=== PATIENT | male | born 1985 ===

== ENCOUNTER → 2020-08-06 11:38 | Outpatient (BNVA) | payer MEDICARE, MEDICAID, SELFPAY | PROVIDERS: PCP Internal Medicine; Referring Provider Internal Medicine; Visit Provider Internal Medicine Endocrinology, Diabetes & Metabolism | DX: Z13.89 Encounter for screening for other disorder (principal) | CPT/HCPCS: 99212 ==

== ENCOUNTER 2020-08-11 09:34 | Outpatient (REF) | payer MEDICARE, MEDICAID, SELFPAY ==
[2020-08-11 10:48] LABS: Estimated Average Glucose 174 mg/dL; Hemoglobin A1c % 7.7 %
[2020-08-11 10:56] LABS: Alanine Aminotransferase 42 U/L (0-40); Alkaline Phosphatase 126 U/L (39-117); Anion Gap 13 (12-20); Aspartate Amino Transferase 19 U/L (5-37); Bilirubin Total 0.7 mg/dL (0.0-1.0); Blood Urea Nitrogen 18 mg/dL (9-16); Carbon Dioxide 26 mmol/L (22-29); Chloride 104 mmol/L (96-108); Estimated Glomerular Filt Rate > 60; Glucose Fasting 163 mg/dL (60-99); Potassium 4.9 mmol/l (3.3-5.1); Sodium 138 mmol/L (135-145); Total Protein 7.5 g/dL (6.5-8.0)
[2020-08-11 11:18] LABS: Vitamin D 25-OH Total 32.8 ng/mL (>30)
== END 2020-08-11 09:35 | disposition home or self-care (01) ==
LOC: HO.10HDL 09:34
PROVIDERS: Visit Provider Internal Medicine Endocrinology, Diabetes & Metabolism
DX: E11.65 Type 2 diabetes mellitus with hyperglycemia (principal); E55.9 Vitamin D deficiency, unspecified
CPT/HCPCS: 80053; 82306; 83036

== ENCOUNTER → 2020-12-10 13:17 | Outpatient (BNVA) | payer MEDICARE, MEDICAID, SELFPAY | PROVIDERS: PCP Internal Medicine; Visit Provider Internal Medicine Endocrinology, Diabetes & Metabolism | DX: E11.65 Type 2 diabetes mellitus with hyperglycemia (principal); E66.01 Morbid (severe) obesity due to excess calories; E55.9 Vitamin D deficiency, unspecified; E78.5 Hyperlipidemia, unspecified; I10 Essential (primary) hypertension | CPT/HCPCS: 82947; 99212 ==

== ENCOUNTER 2021-10-05 12:46 | Emergency (ER) | payer MEDICARE, MEDICAID, SELFPAY ==
[2021-10-05 14:14] VITALS: BP 128/79; PULSE 84; RESP 16; TEMP 36.9; O2SAT 97; BMI 51.7
--- NOTE | 2021-10-05 14:21 | ED.GENADULT ---
HPI - General Adult General Chief complaint: General Medical Stated complaint: medication refill Time Seen by Provider: 10/05/21 14:19 Source: patient Mode of arrival: ambulatory Limitations: no limitations History of Present Illness HPI narrative: 35-year-old male with history of obesity, depression, anxiety, HTN, HLD, DM on insulin, LENCHO who presents to the ER for medication refill. He reports that his primary care doctor movement he does not have an appointment with his new doctor until January. He has been without his lisinopril and atorvastatin for 2 weeks now. He does have all of his insulin and diabetic medications. His sugars have been under adequate control. He does not have a home blood pressure cuff but he denies any chest pain, shortness of breath, headache, vision changes. MD complaint: Medication refill Relieving factors: none Exacerbating factors: none Associated symptoms: denies other symptoms Treatments prior to arrival: none Related Data Previous Rx's Medication Instructions Recorded atorvastatin 80 mg tablet 80 mg PO DAILY #90 tab 12/10/20 blood sugar diagnostic (FreeStyle 1 strip MISCELLANEOUS TID #300 12/10/20 Lite Strips) strip empagliflozin 25 mg tablet 25 mg PO DAILY 30 Days #30 tab 12/10/20 insulin aspart U-100 100 unit/mL 15 unit (0.15 mL) SUBCUT TID 30 12/10/20 (3 mL) subcutaneous pen Days #15 ml insulin degludec 200 unit/mL (3 60 unit (0.3 mL) SUBCUT BEDTIME 30 12/10/20 mL) subcutaneous pen Days #9 ml lisinopril 10 mg tablet 10 mg PO DAILY 90 Days #90 tab 12/10/20 pen needle, diabetic 32 gauge x #150 ea 12/10/20 FreeStyle Lancets 28 gauge #300 ea NS 12/11/20 (lancets) clotrimazole 1 % topical cream 1 appl TOPICAL BID 14 Days #45 g 12/29/20 fluconazole 150 mg tablet 150 mg PO DAILY 3 Days #3 tab 12/29/20 dulaglutide 3 mg/0.5 mL 3 mg (0.5 mL) SUBCUT QWEEK 30 Days 01/19/21 subcutaneous pen injector #2.5 ml (Trulicity) cholecalciferol (vitamin D3) 50 50 mcg PO DAILY 90 Days #90 cap 09/14/21 mcg (2,000 unit) capsule atorvastatin 80 mg tablet 80 mg PO BEDTIME #30 tab 10/05/21 lisinopril 10 mg tablet 10 mg PO DAILY #30 tab 10/05/21 Allergies Allergy/AdvReac Type Severity Reaction Status Date / Time No Known Allergies Allergy Unverified 06/11/20 18:19 pt states no food/medication Allergy Unknown Uncoded 04/30/20 00:00 a Review of Systems Review of Systems: Constitutional: No Fever, No Chills Eyes: No vision changes Cardiovascular: No Chest Pain, No SOB Gastrointestinal: No Nausea, No Vomiting, No Diarrhea, No abdominal Pain Musculoskeletal: No Myalgias Neuro: No Weakness, No Dizziness, No Headache Psych: + Anxiety/Panic Endocrine: No Polyuria, No Polydipsia PMFSH Past Medical History Medical History (Updated 10/05/21 @ 14:29 by VIKA Green) Anxiety Candidal balanitis Depression Diabetes type 2, uncontrolled Dyslipidemia Hypertension Morbid obesity Sleep apnea Vitamin D deficiency Surgical History (Updated 07/30/20 @ 15:18 by Myrna Menezes [facility]) No pertinent past surgical history Family History Family History (Updated 07/30/20 @ 15:19 by FRANC Oates) Father Hypertension Mother Type 2 diabetes mellitus Obesity Social History Social History (Updated 08/06/20 @ 11:40 by Kim Alonzo [facility]) Advance Directives: No Advance Directives Information Provided: No Physical Exam Vital Signs: Vital Signs: Last Vital Signs Temp 98.4 F 10/05/21 14:14 Pulse 84 10/05/21 14:14 Resp 16 10/05/21 14:14 BP 128/79 10/05/21 14:14 Pulse Ox 97 10/05/21 14:14 BMI result Body Mass Index 51.7 Appearance: Alert. Oriented X3. No acute distress. HEENT: Normal external inspection CVS: Normal heart rate and rhythm. Pulses normal. Respiratory: No respiratory distress. Breath sounds normal. Abdomen: Obese, soft. NT. Skin: Skin warm and dry. Normal skin color. Normal skin turgor. No rashes. Extremities: Normal inspection Neuro: Oriented X 3. Gross normal, nonfocal Course Course Course Narrative: 35-year-old male with a history of DM on insulin, HTN, HLD, anxiety/depression, LENCHO who presents to the ER for medication refill. He needs a refill of his lisinopril 10 mg a day and atorvastatin 80 mg per day. His glucose today is 175. He has been compliant with all his diabetic medications. He has an appointment his PCP and may is working on getting and sooner for medication refills. Will prescribe one-month worth of those medications and have him follow-up with his primary care doctor. Patient is stable for discharge home. Medical Decision Making Lab Data Labs: Lab Results 10/05/21 Range/Units 14:24 POC Glucose 175 H (60-115) mg/dL Discharge Plan Discharge Clinical Impression: Dyslipidemia, Diabetes type 2, uncontrolled Patient Disposition: Home, Self-Care Instructions: Diabetes and Exercise (ED) Additional Instructions: Take all of your medications as prescribed. Follow-up with your primary care doctor for further management. Prescriptions: New lisinopril 10 mg tablet 10 mg PO DAILY Qty: 30 RF: 0 atorvastatin 80 mg tablet 80 mg PO BEDTIME Qty: 30 RF: 0 No Action (DME) lancets [FreeStyle Lancets] 28 gauge misc See Rx Instructions .MEDSUPPLY Qty: 300 RF: 3 fluconazole 150 mg tablet 150 mg PO DAILY 3 Days Qty: 3 RF: 0 clotrimazole 1 % cream 1 appl topical BID 14 Days Qty: 45 RF: 0 Trulicity 3 mg/0.5 mL pen injector 3 mg subcut QWEEK 30 Days Qty: 2.5 RF: 6 cholecalciferol (vitamin D3) 50 mcg (2,000 unit) capsule 50 mcg PO DAILY 90 Days Qty: 90 RF: 1 empagliflozin 25 mg tablet 25 mg PO DAILY 30 Days Qty: 30 RF: 5 insulin aspart U-100 100 unit/mL (3 mL) insulin pen 15 unit subcut TID 30 Days Qty: 15 RF: 5 insulin degludec 200 unit/mL (3 mL) insulin pen 60 unit subcut BEDTIME 30 Days Qty: 9 RF: 5 lisinopril 10 mg tablet 10 mg PO DAILY 90 Days Qty: 90 RF: 1 (DME) pen needle, diabetic 32 gauge x 5/32 needle See Rx Instructions ea subcut QID Qty: 150 RF: 6 atorvastatin 80 mg tablet 80 mg PO DAILY Qty: 90 RF: 1 FreeStyle Lite Strips Strip 1 strip miscellaneous TID Qty: 300 RF: 1 Referrals: Hailey Dougherty MD [Primary Care Provider] - 1 week (Medication refill)
[2021-10-05 14:28] LABS: Glucose, Whole Blood 175 mg/dL (60-115)
== END 2021-10-05 15:13 | disposition home or self-care (01) ==
LOC: HO.ED 14:29
PROVIDERS: Emergency Provider Emergency Medicine; PCP Internal Medicine
DX: E78.5 Hyperlipidemia, unspecified (principal); E11.9 Type 2 diabetes mellitus without complications; I10 Essential (primary) hypertension; Z79.4 Long term (current) use of insulin; Z79.899 Other long term (current) drug therapy
CPT/HCPCS: 82947; 99282; 99283; 99284

== ENCOUNTER 2021-10-05 14:44 | Outpatient (REF) | payer SELFPAY ==
[2021-10-05 15:47] LABS: Binax Internal Control QC Valid; Binax Now Covid-19 Ag Negative (Negative)
== END 2021-10-05 14:45 | disposition home or self-care (01) ==
LOC: HO.LAB 14:44
PROVIDERS: Visit Provider Internal Medicine
DX: Z20.822 Contact with and (suspected) exposure to COVID-19 (principal)
CPT/HCPCS: C9803

== ENCOUNTER 2021-11-02 11:37 | Emergency (ER) | payer MEDICARE, MEDICAID, SELFPAY ==
[2021-11-02 12:18] VITALS: BP 130/84; PULSE 72; RESP 18; TEMP 35.8; O2SAT 97; BMI 47.0
--- NOTE | 2021-11-02 14:03 | ED.GENADULT ---
HPI - General Adult General Chief complaint: General Medical Stated complaint: Medication refill Time Seen by Provider: 11/02/21 13:55 Source: patient Mode of arrival: ambulatory Limitations: no limitations History of Present Illness HPI narrative: Patient comes to the emergency room requesting a refill for Jardiance. Patient states he ran out of his medication 3 days ago. 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 However, his appointments are until 2 months from today. Patient states that he has been compliant with his medication. Denies any symptoms. Related Data Previous Rx's Medication Instructions Recorded atorvastatin 80 mg tablet 80 mg PO DAILY #90 tab 12/10/20 blood sugar diagnostic (FreeStyle 1 strip MISCELLANEOUS TID #300 12/10/20 Lite Strips) strip empagliflozin 25 mg tablet 25 mg PO DAILY 30 Days #30 tab 12/10/20 insulin aspart U-100 100 unit/mL 15 unit (0.15 mL) SUBCUT TID 30 12/10/20 (3 mL) subcutaneous pen Days #15 ml insulin degludec 200 unit/mL (3 60 unit (0.3 mL) SUBCUT BEDTIME 30 12/10/20 mL) subcutaneous pen Days #9 ml lisinopril 10 mg tablet 10 mg PO DAILY 90 Days #90 tab 12/10/20 pen needle, diabetic 32 gauge x #150 ea 12/10/20 FreeStyle Lancets 28 gauge #300 ea NS 12/11/20 (lancets) clotrimazole 1 % topical cream 1 appl TOPICAL BID 14 Days #45 g 12/29/20 fluconazole 150 mg tablet 150 mg PO DAILY 3 Days #3 tab 12/29/20 dulaglutide 3 mg/0.5 mL 3 mg (0.5 mL) SUBCUT QWEEK 30 Days 01/19/21 subcutaneous pen injector #2.5 ml (Trulicity) cholecalciferol (vitamin D3) 50 50 mcg PO DAILY 90 Days #90 cap 09/14/21 mcg (2,000 unit) capsule atorvastatin 80 mg tablet 80 mg PO BEDTIME #30 tab 10/05/21 lisinopril 10 mg tablet 10 mg PO DAILY #30 tab 10/05/21 empagliflozin 25 mg tablet 25 mg PO DAILY #30 tab 11/02/21 (Jardiance) Allergies Allergy/AdvReac Type Severity Reaction Status Date / Time No Known Allergies Allergy Unverified 06/11/20 18:19 Review of Systems Review of Systems: Constitutional : No Weight loss, No Fever, No Chills, No Night Sweats, No Fatigue, No Malaise ENT/Mouth : No Hearing loss, No Ear Pain, No Nasal Congestion, No Sinus Pain, No Hoarseness, No sore throat, No Rhinorrhea, No Swallowing Difficulty Eyes: No Eye Pain, No Swelling, No Redness, No Foreign Body, No Discharge, No Vision Changes Cardiovascular : No Chest Pain, No SOB, No Dyspnea on Exertion, No Orthopnea, No Edema, No Palpitations Respiratory : No Cough, No Sputum, No Wheezing, No Smoke Exposure, No Dyspnea Gastrointestinal : No Nausea, No Vomiting, No Diarrhea, No Constipation, No abdominal Pain, No Hematochezia, No Melena Genitourinary : no irregular bleeding, No Dysuria, No Urinary Frequency, No Hematuria, No Urinary Incontinence, No Urgency, No Flank Pain, No Urinary Flow Changes, No Hesitancy Musculoskeletal : No joint pain, No Myalgias, No Joint Swelling Skin : No Skin Lesions, No rash Neuro : No Weakness, No Numbness, No Paresthesias, No Loss of Consciousness, No Dizziness, No Headache Psych : No Anxiety/Panic, No Depression, No SI/HI/AH/VH, No Social Issues, Heme/Lymph: No Bruising, No Bleeding,No Lymphadenopathy Endocrine : No Polyuria, No Polydipsia, No Temperature Intolerance PMF Past Medical History Medical History Anxiety Candidal balanitis Depression Diabetes type 2, uncontrolled Dyslipidemia Hypertension Morbid obesity Sleep apnea Vitamin D deficiency Surgical History No pertinent past surgical history Family History Family History (Updated 07/30/20 @ 15:19 by FRANC Oates) Father Hypertension Mother Type 2 diabetes mellitus Obesity Social History Social History (Updated 08/06/20 @ 11:40 by MICHELE Avalos) Advance Directives: No Advance Directives Information Provided: Yes Physical Exam Vital Signs: Vital Signs: Last Vital Signs Temp 96.5 F L 11/02/21 12:18 Pulse 72 11/02/21 12:18 Resp 18 11/02/21 12:18 BP 130/84 11/02/21 12:18 Pulse Ox 97 11/02/21 12:18 BMI result Body Mass Index 47.0 Const: Other: Appearance: Alert. Oriented X3. No acute distress. Eyes: Pupils equal, round and reactive to light. ENT: Pharynx normal. Neck: Normal inspection. Neck supple. No lymph nodes noted. No crepitus CVS: Normal heart rate and rhythm. Pulses normal. Normal S1 and S2 Respiratory: No respiratory distress. Breath sounds normal. No Wheezing. No rales Abdomen: Soft and nontender. No rigidity. No distention. good BS x4 Skin: Skin warm and dry. Normal skin color. Normal skin turgor. Extremities: No lower extremity edema. No Lacerations. No Rash Neuro: Oriented X 3. No motor deficit. No sensory deficit. Moving all extermities. No slurred speech. Course Course Course Narrative: POC 216, pt asymptomatic I reviewed patient's previous office notes from Neurology, Dr. Houston Kc was prescribing Jardiance 25mg before first meal daily. Medical Decision Making Lab Data Labs: Lab Results 11/02/21 Range/Units 14:05 POC Glucose 216 H (60-115) mg/dL Discharge Plan Discharge Clinical Impression: Medication refill Patient Disposition: Home, Self-Care Instructions: Medicine Refill (ED) Additional Instructions: Please follow-up with your primary care physician tomorrow. If you have any worsening or new symptoms, please return to the emergency room or call 911 Prescriptions: New Jardiance 25 mg tablet 25 mg PO DAILY Qty: 30 1RF No Action (DME) lancets [FreeStyle Lancets] 28 gauge misc See Rx Instructions .MEDSUPPLY Qty: 300 3RF Rx Instructions: 3 times a day fluconazole 150 mg tablet 150 mg PO DAILY 3 Days Qty: 3 0RF clotrimazole 1 % cream 1 appl topical BID 14 Days Qty: 45 0RF Trulicity 3 mg/0.5 mL pen injector 3 mg subcut QWEEK 30 Days Qty: 2.5 6RF Rx Instructions: Dose increased cholecalciferol (vitamin D3) 50 mcg (2,000 unit) capsule 50 mcg PO DAILY 90 Days Qty: 90 1RF lisinopril 10 mg tablet 10 mg PO DAILY Qty: 30 0RF atorvastatin 80 mg tablet 80 mg PO BEDTIME Qty: 30 0RF empagliflozin 25 mg tablet 25 mg PO DAILY 30 Days Qty: 30 5RF insulin aspart U-100 100 unit/mL (3 mL) insulin pen 15 unit subcut TID 30 Days Qty: 15 5RF insulin degludec 200 unit/mL (3 mL) insulin pen 60 unit subcut BEDTIME 30 Days Qty: 9 5RF lisinopril 10 mg tablet 10 mg PO DAILY 90 Days Qty: 90 1RF (DME) pen needle, diabetic 32 gauge x 5/32 needle See Rx Instructions ea subcut QID Qty: 150 6RF Rx Instructions: 4 times a day atorvastatin 80 mg tablet 80 mg PO DAILY Qty: 90 1RF FreeStyle Lite Strips Strip 1 strip miscellaneous TID Qty: 300 1RF Referrals: Karishma Rivero MD [Physician] - 2 days (DM)
[2021-11-02 14:10] LABS: Glucose, Whole Blood 216 mg/dL (60-115)
== END 2021-11-02 14:28 | disposition home or self-care (01) ==
PROVIDERS: Emergency Provider Emergency Medicine; PCP Internal Medicine
DX: Z76.0 Encounter for issue of repeat prescription (principal); Z79.899 Other long term (current) drug therapy
CPT/HCPCS: 82947; 99282; 99284

== ENCOUNTER 2021-11-12 11:15 | Emergency (ER) | payer MEDICARE, MEDICAID, SELFPAY ==
[2021-11-12 11:39] VITALS: BP 126/100; PULSE 84; RESP 20; TEMP 36.4; O2SAT 97; BMI 52.1
--- NOTE | 2021-11-12 12:58 | ED_ITS ---
HPI - General Adult General Chief complaint: General Medical Stated complaint: med refill Time Seen by Provider: 11/12/21 12:22 Source: patient Mode of arrival: ambulatory Limitations: no limitations History of Present Illness HPI narrative: Patient comes to the emergency room requesting medication refills. 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 Patient has an appointment pending with his primary care physician but they can see him in 3 months from today. Patient states he has been out of his medications for 1 day. Patient is asymptomatic. Patient reports to being 100% adherent to his medication regimen Related Data Previous Rx's Medication Instructions Recorded atorvastatin 80 mg tablet 80 mg PO DAILY #90 tab 12/10/20 blood sugar diagnostic (FreeStyle 1 strip MISCELLANEOUS TID #300 12/10/20 Lite Strips) strip empagliflozin 25 mg tablet 25 mg PO DAILY 30 Days #30 tab 12/10/20 insulin aspart U-100 100 unit/mL 15 unit (0.15 mL) SUBCUT TID 30 12/10/20 (3 mL) subcutaneous pen Days #15 ml insulin degludec 200 unit/mL (3 60 unit (0.3 mL) SUBCUT BEDTIME 30 12/10/20 mL) subcutaneous pen Days #9 ml lisinopril 10 mg tablet 10 mg PO DAILY 90 Days #90 tab 12/10/20 pen needle, diabetic 32 gauge x #150 ea 12/10/20 FreeStyle Lancets 28 gauge #300 ea NS 12/11/20 (lancets) clotrimazole 1 % topical cream 1 appl TOPICAL BID 14 Days #45 g 12/29/20 fluconazole 150 mg tablet 150 mg PO DAILY 3 Days #3 tab 12/29/20 dulaglutide 3 mg/0.5 mL 3 mg (0.5 mL) SUBCUT QWEEK 30 Days 01/19/21 subcutaneous pen injector #2.5 ml (Trulicity) cholecalciferol (vitamin D3) 50 50 mcg PO DAILY 90 Days #90 cap 09/14/21 mcg (2,000 unit) capsule atorvastatin 80 mg tablet 80 mg PO BEDTIME #30 tab 10/05/21 lisinopril 10 mg tablet 10 mg PO DAILY #30 tab 10/05/21 empagliflozin 25 mg tablet 25 mg PO DAILY #30 tab 11/02/21 (Jardiance) atorvastatin 80 mg tablet 80 mg PO BEDTIME #30 tab 11/12/21 dulaglutide 3 mg/0.5 mL 3 mg (0.5 mL) SUBCUT QWEEK 28 Days 11/12/21 subcutaneous pen injector #2 ml (Trulicity) insulin aspart U-100 100 unit/mL 15 unit (0.15 mL) SUBCUT TID #15 ml 11/12/21 subcutaneous cartridge (Novolog PenFill U-100 Insulin aspart) lisinopril 10 mg tablet 10 mg PO DAILY #30 tab 11/12/21 Allergies Allergy/AdvReac Type Severity Reaction Status Date / Time No Known Allergies Allergy Verified 11/12/21 11:40 Review of Systems Review of Systems: Constitutional : No Weight loss, No Fever, No Chills, No Night Sweats, No Fatigue, No Malaise ENT/Mouth : No Hearing loss, No Ear Pain, No Nasal Congestion, No Sinus Pain, No Hoarseness, No sore throat, No Rhinorrhea, No Swallowing Difficulty Eyes: No Eye Pain, No Swelling, No Redness, No Foreign Body, No Discharge, No Vision Changes Cardiovascular : No Chest Pain, No SOB, No Dyspnea on Exertion, No Orthopnea, No Edema, No Palpitations Respiratory : No Cough, No Sputum, No Wheezing, No Smoke Exposure, No Dyspnea Gastrointestinal : No Nausea, No Vomiting, No Diarrhea, No Constipation, No abdominal Pain, No Hematochezia, No Melena Genitourinary : no irregular bleeding, No Dysuria, No Urinary Frequency, No Hematuria, No Urinary Incontinence, No Urgency, No Flank Pain, No Urinary Flow Changes, No Hesitancy Musculoskeletal : No joint pain, No Myalgias, No Joint Swelling Skin : No Skin Lesions, No rash Neuro : No Weakness, No Numbness, No Paresthesias, No Loss of Consciousness, No Dizziness, No Headache Psych : No Anxiety/Panic, No Depression, No SI/HI/AH/VH, No Social Issues, Heme/Lymph: No Bruising, No Bleeding,No Lymphadenopathy Endocrine : No Polyuria, No Polydipsia, No Temperature Intolerance [facility] Past Medical History Medical History Anxiety Candidal balanitis Depression Diabetes type 2, uncontrolled Dyslipidemia Hypertension Morbid obesity Sleep apnea Vitamin D deficiency Surgical History No pertinent past surgical history Family History Family History (Updated 07/30/20 @ 15:19 by My[facility]na Menezes [facility]) Father Hypertension Mother Type 2 diabetes mellitus Obesity Social History Social History (Updated 08/06/20 @ 11:40 by MICHELE Avalos) Advance Directives: No Advance Directives Information Provided: No Physical Exam ED Vital Signs: Vital Signs - 24 hr 11/12/21 11:39 Temperature 97.6 F Pulse Rate 84 Respiratory Rate 20 Blood Pressure 126/100 H Pulse Oximetry 97 BMI result Body Mass Index 52.1 Const Other: Appearance: Alert. Oriented X3. No acute distress. Eyes: Pupils equal, round and reactive to light. ENT: Pharynx normal. Neck: Normal inspection. Neck supple. No lymph nodes noted. No crepitus CVS: Normal heart rate and rhythm. Pulses normal. Normal S1 and S2 Respiratory: No respiratory distress. Breath sounds normal. No Wheezing. No rales Abdomen: Soft and nontender. No rigidity. No distention. Skin: Skin warm and dry. Normal skin color. Normal skin turgor. Extremities: No lower extremity edema. No Lacerations. No Rash Neuro: Oriented X 3. No motor deficit. No sensory deficit. Moving all extermities. No slurred speech. Course Course Course Narrative: We will go ahead and refill his medications, patient is on the mentioned medications per patient's records Discharge Plan Discharge Clinical Impression: Encounter for medication refill Patient Disposition: Home, Self-Care Instructions: Medicine Refill (ED) Additional Instructions: Please follow-up with your primary care physician tomorrow. If you have any worsening or new symptoms, please return to the emergency room or call 911 Prescriptions: New atorvastatin 80 mg tablet 80 mg PO BEDTIME Qty: 30 2RF lisinopril 10 mg tablet 10 mg PO DAILY Qty: 30 2RF Trulicity 3 mg/0.5 mL pen injector 3 mg subcut QWEEK 28 Days Qty: 2 2RF Rx Instructions: Please dispense with syringes/needles, enough for 4 weeks insulin aspart U-100 [Novolog PenFill U-100 Insulin] 100 unit/mL cartridge 15 unit subcut TID Qty: 15 2RF No Action (DME) lancets [FreeStyle Lancets] 28 gauge misc See Rx Instructions .MEDSUPPLY Qty: 300 3RF Rx Instructions: 3 times a day fluconazole 150 mg tablet 150 mg PO DAILY 3 Days Qty: 3 0RF clotrimazole 1 % cream 1 appl topical BID 14 Days Qty: 45 0RF Trulicity 3 mg/0.5 mL pen injector 3 mg subcut QWEEK 30 Days Qty: 2.5 6RF Rx Instructions: Dose increased cholecalciferol (vitamin D3) 50 mcg (2,000 unit) capsule 50 mcg PO DAILY 90 Days Qty: 90 1RF lisinopril 10 mg tablet 10 mg PO DAILY Qty: 30 0RF atorvastatin 80 mg tablet 80 mg PO BEDTIME Qty: 30 0RF Jardiance 25 mg tablet 25 mg PO DAILY Qty: 30 1RF empagliflozin 25 mg tablet 25 mg PO DAILY 30 Days Qty: 30 5RF insulin aspart U-100 100 unit/mL (3 mL) insulin pen 15 unit subcut TID 30 Days Qty: 15 5RF insulin degludec 200 unit/mL (3 mL) insulin pen 60 unit subcut BEDTIME 30 Days Qty: 9 5RF lisinopril 10 mg tablet 10 mg PO DAILY 90 Days Qty: 90 1RF (DME) pen needle, diabetic 32 gauge x 5/32 needle See Rx Instructions ea subcut QID Qty: 150 6RF Rx Instructions: 4 times a day atorvastatin 80 mg tablet 80 mg PO DAILY Qty: 90 1RF FreeStyle Lite Strips Strip 1 strip miscellaneous TID Qty: 300 1RF Referrals: Roberta Bond DO [Physician] - 2 days
== END 2021-11-12 13:10 | disposition home or self-care (01) ==
PROVIDERS: Emergency Provider Emergency Medicine; PCP Internal Medicine
DX: Z76.0 Encounter for issue of repeat prescription (principal); E11.9 Type 2 diabetes mellitus without complications; I10 Essential (primary) hypertension; E78.5 Hyperlipidemia, unspecified
CPT/HCPCS: 99282; 99283

== ENCOUNTER 2021-12-07 09:06 | Outpatient (REF) | payer MEDICARE, MEDICAID, SELFPAY ==
[2021-12-07 11:23] LABS: Anion Gap 12 (12-20); Blood Urea Nitrogen 13 mg/dL (9-16); Calcium 9.2 mg/dL (8.4-10.2); Carbon Dioxide 27 mmol/L (22-29); Chloride 105 mmol/L (96-108); Cholesterol 96 mg/dL; Estimated Glomerular Filt Rate > 60; Glucose Random 154 mg/dL (60-115); HDL Cholesterol 28 mg/dL; LDL Cholesterol Calculated 59 mg/dl; Potassium 4.6 mmol/L (3.3-5.1); Sodium 139 mmol/L (135-145); Triglycerides 45 mg/dL
[2021-12-07 11:26] LABS: Creatinine Urine 186.88 mg/dL
== END 2021-12-07 09:07 | disposition home or self-care (01) ==
LOC: HO.LAB 09:06
PROVIDERS: PCP Internal Medicine; Visit Provider Internal Medicine Endocrinology, Diabetes & Metabolism
DX: E11.65 Type 2 diabetes mellitus with hyperglycemia (principal)
CPT/HCPCS: 36415; 80048; 80061; 82043; 82947; 83036; 99212

== ENCOUNTER → 2022-03-23 13:06 | Outpatient (BNVA) | payer MEDICARE, MEDICAID, SELFPAY | PROVIDERS: PCP Internal Medicine; Visit Provider Internal Medicine Endocrinology, Diabetes & Metabolism | DX: E11.65 Type 2 diabetes mellitus with hyperglycemia (principal) | CPT/HCPCS: 82947; 99211; 99212 ==

== ENCOUNTER → 2022-04-19 07:41 | Outpatient (BNVA) | payer MEDICARE, MEDICAID, SELFPAY | PROVIDERS: PCP Internal Medicine; Visit Provider Registered Nurse Diabetes Educator | DX: E11.65 Type 2 diabetes mellitus with hyperglycemia (principal) | CPT/HCPCS: 99211 ==

== ENCOUNTER 2022-05-27 14:24 | Outpatient (REF) | payer MEDICARE, MEDICAID, SELFPAY ==
[2022-05-27 15:37] LABS: Appearance Urine Clear; Color Urine Yellow; Glucose Urine UA >=1000 mg/dL (Negative); Leukocyte Esterase Urine Negative (Negative); Nitrite Urine Negative (Negative); PH 5.5 (5.0-9.0); Specific Gravity - Urine >= 1.030 (1.005-1.025); Urine Blood Negative (Negative); Urine Ketones Negative (Negative); Urine Protein Negative (Neg-Trace)
[2022-05-27 15:43] LABS: Bacteria Urine None Seen (None Seen); Hyaline Casts Urine 0-2 /LPF (0-2); RBC Urine 0-2 /HPF (0-2); Squamous Epithelial Cell Urine 0-2 /HPF (0-2); WBC Urine 0-5 /HPF (0-5)
== END 2022-05-27 14:25 | disposition home or self-care (01) ==
LOC: HO.LAB 14:24
PROVIDERS: PCP Internal Medicine; Visit Provider Internal Medicine
DX: R30.0 Dysuria (principal)
CPT/HCPCS: 81001

== ENCOUNTER → 2022-07-22 10:22 | Outpatient (BNVA) | payer MEDICARE, MEDICAID, SELFPAY | PROVIDERS: PCP Internal Medicine; Visit Provider Internal Medicine Endocrinology, Diabetes & Metabolism | DX: E11.65 Type 2 diabetes mellitus with hyperglycemia (principal) | CPT/HCPCS: 82947; 99212 ==

== ENCOUNTER 2022-07-26 10:01 | Outpatient (REF) | payer MEDICARE, MEDICAID, SELFPAY ==
[2022-07-26 11:20] LABS: Alanine Aminotransferase 39 U/L (0-40); Albumin Level 4.1 g/dL (3.5-5.0); Alkaline Phosphatase 110 U/L (39-117); Anion Gap 17 (12-20); Aspartate Amino Transferase 25 U/L (5-37); Bilirubin Total 0.4 mg/dL (0.0-1.0); Blood Urea Nitrogen 20 mg/dL (9-16); Calcium 9.6 mg/dL (8.4-10.2); Carbon Dioxide 25 mmol/L (22-29); Chloride 106 mmol/L (96-108); Cholesterol 111 mg/dL; Estimated Glomerular Filt Rate > 60; Glucose Fasting 145 mg/dL (60-99); HDL Cholesterol 33 mg/dL; LDL Cholesterol Calculated 68 mg/dl; Potassium 4.6 mmol/L (3.3-5.1); Sodium 143 mmol/L (135-145); Total Protein 7.4 g/dL (6.5-8.0); Triglycerides 53 mg/dL
[2022-07-26 11:26] LABS: Vitamin D 25-OH Total 39.8 ng/mL (>30)
[2022-07-26 12:01] LABS: HIV AB/AG Nonreactive (Nonreactive); HIV Num 1 0.12 S/CO (0.00-0.99)
[2022-07-26 12:29] LABS: Microalbum/Creatinine Ratio Ur 7.8 ug/mg cr
[2022-07-26 18:17] LABS: CT PCR NOT DETECTED (Not Detect.); NG PCR NOT DETECTED (Not Detect.)
[2022-07-27 07:52] LABS: Syphilis Screen Nonreactive (Nonreactive)
[2022-07-30 15:47] LABS: HSV 1 IgM IFA Negative (Negative); HSV 2 IgM IFA Negative (Negative)
== END 2022-07-26 10:02 | disposition home or self-care (01) ==
LOC: HO.LAB 10:01
PROVIDERS: PCP Internal Medicine; Visit Provider Internal Medicine
DX: Z11.3 Encounter for screening for infections with a predominantly sexual mode of transmission (principal); Z11.4 Encounter for screening for human immunodeficiency virus [HIV]; E78.5 Hyperlipidemia, unspecified; E55.9 Vitamin D deficiency, unspecified; E11.65 Type 2 diabetes mellitus with hyperglycemia
CPT/HCPCS: 80053; 80061; 82043; 82306; 86695; 86696; 86780; 87389; 87491; 87591

== ENCOUNTER → 2022-09-16 10:43 | Outpatient (BNVA) | payer MEDICARE, MEDICAID, SELFPAY | PROVIDERS: PCP Internal Medicine; Visit Provider Registered Nurse Diabetes Educator | DX: E11.65 Type 2 diabetes mellitus with hyperglycemia (principal); E66.01 Morbid (severe) obesity due to excess calories; I10 Essential (primary) hypertension; E78.5 Hyperlipidemia, unspecified; E55.9 Vitamin D deficiency, unspecified | CPT/HCPCS: 99211 ==

== ENCOUNTER 2022-12-08 10:27 | Outpatient (REF) | payer MEDICARE, MEDICAID, SELFPAY ==
[2022-12-08 12:36] LABS: Appearance Urine Clear; Color Urine Yellow; Glucose Urine UA >=1000 mg/dL (Negative); Leukocyte Esterase Urine Negative (Negative); Nitrite Urine Negative (Negative); PH 5.5 (5.0-9.0); Specific Gravity - Urine >= 1.030 (1.005-1.025); UMIC TRIGGER UACC YES; Urine Blood Negative (Negative); Urine Ketones Negative (Negative); Urine Protein Negative (Neg-Trace)
[2022-12-08 12:50] LABS: Vitamin D 25-OH Total 28.5 ng/mL (>30)
[2022-12-08 12:58] LABS: Bacteria Urine None Seen (None Seen); Hyaline Casts Urine 0-2 /LPF (0-2); RBC Urine 0-2 /HPF (0-2); Squamous Epithelial Cell Urine 0-2 /HPF (0-2); WBC Urine 0-5 /HPF (0-5)
[2022-12-08 13:37] LABS: Creatinine Urine 82.96 mg/dL; Microalbum/Creatinine Ratio Ur 15.6 ug/mg cr
[2022-12-11 03:44] LABS: TS Negative Control Passed; TS Panel A 1; TS Panel B 0; TS Positive Control Passed; TSpotTB Negative (Negative)
== END 2022-12-08 10:28 | disposition home or self-care (01) ==
LOC: HO.LAB 10:27
PROVIDERS: PCP Internal Medicine; Visit Provider Internal Medicine
DX: Z11.1 Encounter for screening for respiratory tuberculosis (principal); E55.9 Vitamin D deficiency, unspecified; E11.9 Type 2 diabetes mellitus without complications
CPT/HCPCS: 36415; 81001; 82043; 82306; 86481

== ENCOUNTER 2022-12-16 08:54 | Outpatient (REF) | payer MEDICARE, MEDICAID, SELFPAY ==
[2022-12-16 09:50] LABS: Appearance Urine Clear; Color Urine Yellow; Glucose Urine UA >=1000 mg/dL (Negative); Leukocyte Esterase Urine Negative (Negative); Nitrite Urine Negative (Negative); PH 5.5 (5.0-9.0); Specific Gravity - Urine >= 1.030 (1.005-1.025); UMIC TRIGGER UACC YES; Urine Blood Negative (Negative); Urine Ketones Negative (Negative); Urine Protein Negative (Neg-Trace)
[2022-12-16 09:57] LABS: Bacteria Urine None Seen (None Seen); Hyaline Casts Urine 0-2 /LPF (0-2); RBC Urine 0-2 /HPF (0-2); Squamous Epithelial Cell Urine 0-2 /HPF (0-2); WBC Urine 0-5 /HPF (0-5)
[2022-12-16 09:57] LABS: Alanine Aminotransferase 49 U/L (0-40); Albumin Level 4.1 g/dL (3.5-5.0); Alkaline Phosphatase 99 U/L (39-117); Anion Gap 13 (12-20); Aspartate Amino Transferase 29 U/L (5-37); Bilirubin Total 0.5 mg/dL (0.0-1.0); Blood Urea Nitrogen 20 mg/dL (9-16); Calcium 9.6 mg/dL (8.4-10.2); Carbon Dioxide 28 mmol/L (22-29); Chloride 105 mmol/L (96-108); Cholesterol 178 mg/dL; Estimated Glomerular Filt Rate > 60; Glucose Fasting 148 mg/dL (60-99); HDL Cholesterol 34 mg/dL; LDL Cholesterol Calculated 132 mg/dl; Sodium 141 mmol/L (135-145); Total Protein 7.8 g/dL (6.5-8.0); Triglycerides 61 mg/dL
== END 2022-12-16 08:55 | disposition home or self-care (01) ==
LOC: HO.LAB 08:54
PROVIDERS: PCP Internal Medicine; Visit Provider Internal Medicine
DX: E11.65 Type 2 diabetes mellitus with hyperglycemia (principal); E78.5 Hyperlipidemia, unspecified
CPT/HCPCS: 36415; 80053; 80061; 81001

== ENCOUNTER → 2023-01-13 10:46 | Outpatient (BNVA) | payer MEDICARE, MEDICAID, SELFPAY | PROVIDERS: PCP Internal Medicine; Visit Provider Internal Medicine Endocrinology, Diabetes & Metabolism | DX: E11.65 Type 2 diabetes mellitus with hyperglycemia (principal) | CPT/HCPCS: 82947; 83036; 99212 ==

== ENCOUNTER 2023-04-10 08:24 | Outpatient (AMB) | payer MEDICARE, MEDICAID, SELFPAY ==
--- NOTE | 2023-04-10 08:30 | A.OFFVIS_ITS ---
Intake Vital Signs 04/10/23 08:32 Height 5 ft 7 in Weight 292 lb 15.909 oz BMI 45.9 BP 130/78 Blood Pressure Location Lt radial Position Sitting Pulse 75 Pulse Source Pulse Oximeter Intake Visit Reasons: f/u Type 2 DM Intake Note: Patient present today to follow up on Type 2 Diabetes Mellitus. 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 Chip Packaging Machine Operator Required: Yes Potato Chip Packaging Machine Operator Language: Building Rigger Name: Lola, Medical Staff Information Interpreted: non-clinical & clinical Accompanied by: Self / Same As Patient Allergies No Known Allergies Allergy (Verified 04/10/23 08:32) Medication List - Last Reconciled 04/10/23 by Eloy Hawk MD atorvastatin 80 mg PO BEDTIME blood sugar diagnostic (FreeStyle Lite Strips) 1 strip miscellaneous QID blood-glucose meter (FreeStyle Lite Meter kit) checks 4 X/day cholecalciferol (vitamin D3) 50 mcg PO DAILY 90 days dulaglutide (Trulicity) 3 mg (0.5 mL) subcut QWEEK empagliflozin (Jardiance) 25 mg PO DAILY flash glucose scanning reader (FreeStyle Lorelei 2 [place]) As directed flash glucose sensor (FreeStyle Lorelei 2 Sensor kit) As directed FreeStyle Lancets (lancets) 3 times a day NS insulin aspart U-100 (Novolog FlexPen U-100 Insulin aspart) 15 units (0.15 mL) subcut TID insulin degludec 60 units (0.3 mL) subcut BEDTIME lisinopril 10 mg PO DAILY pen needle, diabetic 4 times a day HPI HPI Comments History of Present Illness Details 37 yo male today for follow-up visit, for diabetes management His feeling well. Has no complaints. Glucometer download shows he is checking his point cares 3 times a day. The range is 99-239. Average glucose is 163 with 65% range and 356% hyperglycemia and no hypoglycemia. Pattern seems to be primarily post-meal hyperglycemia particularly after dinner Occasional hypoglycemia- 1-2 X/wk He is currently on Tresiba 60 units at bed time, he reports been 100% adherent. Novolog 15 units with each meal 20 units with dinner ,Trulicity 3 mg weekly tolerating well. Jardiance 25 mg. No recent hypoglycemia He has DM type 2 diagnosed 2011 , PMD is Dr Watson. He has PMH of LENCHO on CPAP, he has been adherent with the CPAP, Obesity, HTN, Dyslipidemia, Depression. He has diarrhea with metformin. Complications: + retinopathy, no nephropathy, neuropathy, CVA, CAD, PVD. Last ophthalmology evaluation: few mos ago + retinopathy. no Photocoagulation or VEGF. Needs to see optho He denies nocturia, denies polydipsia, + polyuria, no blurred vision, denies numbness and tingling's, his weight is stable. Laboratory Tests 08/30/19 02/26/20 04/30/20 10:48 10:07 13:12 Sodium Potassium Creatinine Estimated GFR POC Glucose Fasting Glucose Hgb A1c Fingerstic k 8.4 Hemoglobin A1c % Calcium Albumin LDL Cholesterol Di rect 77 LDL Cholesterol, C alc 72 25-OH Vitamin D To zach Ur Random Microalb umin Microalb/Creat Rat io 04/30/20 04/30/20 08/11/20 13:19 14:20 09:40 Sodium 138 Potassium 4.9 Creatinine 0.81 Estimated GFR > 60 POC Glucose 116 H Fasting Glucose 163 H Hgb A1c Fingerstic k Hemoglobin A1c % Calcium 9.0 Albumin 4.0 LDL Cholesterol Di rect LDL Cholesterol, C alc 25-OH Vitamin D To zach 32.8 Ur Random Microalb umin < 5.0 Microalb/Creat Rat io TNP 08/11/20 09:40 Sodium Potassium Creatinine Estimated GFR POC Glucose Fasting Glucose Hgb A1c Fingerstic k Hemoglobin A1c % 7.7 Calcium Albumin LDL Cholesterol Di rect LDL Cholesterol, C alc 25-OH Vitamin D To zach Ur Random Microalb umin Microalb/Creat Rat io Laboratory Tests 08/30/19 08/30/19 02/26/20 10:48 10:48 10:07 Hgb Hct Sodium 141 Potassium 4.4 BUN 11 D Creatinine 0.73 Est GFR (Non-Af Am er) > 60 POC Glucose Fasting Glucose 124 H Hgb A1c Fingerstic k Calcium 8.8 D AST 19 ALT 37 Alkaline Phosphata se 123 H Total Protein 7.1 Albumin 3.9 Triglycerides 77 Cholesterol 117 LDL Cholesterol Di rect 77 LDL Cholesterol, C alc 72 HDL Cholesterol 30 25-OH Vitamin D To zach 25.0 Ur Random Creatini ne Ur Random Microalb umin Microalb/Creat Rat io 02/26/20 04/30/20 04/30/20 10:07 13:12 13:19 Hgb 14.0 Hct 45.1 Sodium Potassium BUN Creatinine Est GFR (Non-Af Am er) POC Glucose 116 H Fasting Glucose Hgb A1c Fingerstic k 8.4 Calcium AST ALT Alkaline Phosphata se Total Protein Albumin Triglycerides Cholesterol LDL Cholesterol Di rect LDL Cholesterol, C alc HDL Cholesterol 25-OH Vitamin D To zach Ur Random Creatini ne Ur Random Microalb umin Microalb/Creat Rat io 04/30/20 14:20 Hgb Hct Sodium Potassium BUN Creatinine Est GFR (Non-Af Am er) POC Glucose Fasting Glucose Hgb A1c Fingerstic k Calcium AST ALT Alkaline Phosphata se Total Protein Albumin Triglycerides Cholesterol LDL Cholesterol Di rect LDL Cholesterol, C alc HDL Cholesterol 25-OH Vitamin D To zach Ur Random Creatini ne 84.38 Ur Random Microalb umin < 5.0 Microalb/Creat Rat io TNP [facility] Medical History Anxiety Candidal balanitis Depression Diabetes type 2, uncontrolled Dyslipidemia Hypertension Morbid obesity Sleep apnea Vitamin D deficiency Surgical History No pertinent past surgical history Family History Father Hypertension Mother Type 2 diabetes mellitus Obesity Social History Housing: Apartment Alcohol intake: former Patient Tobacco Use Status: Current everyday Tobacco user Tobacco use type: Cigarette Cigarettes Per Day: 10 e-Cigarette/Vaping Use: Never Used Second Hand Smoke Exposure: No service: No Current occupational status: employed Current occupational exposures/hazards: No Cognitive needs: No Hearing needs: No Vision needs: Yes Physical Exam Vital Signs: Last Vital Signs Pulse 75 04/10/23 08:32 BP 130/78 04/10/23 08:32 BMI result Body Mass Index 45.9 Absence of Cushingoid features. Absence of acromegalic features. Neck exam reveals nl size thyroid about 15 gms. No thyroid nodules palpable. No carotid bruits present. Lungs CTA. Heart S1 S2, Reg R/R. No M/R/ G. Skin exam reveals absence of vitiligo or acanthosis nigricans. Abdominal exam reveals Soft NT/ND with NA BS. No organomegaly present. Neck Other: . Extrem Other: Visual exam of foot performed. No ulcerations or open lesions. No onchomycosis, no callouses.Pulses 2 + distally Sensation intact to monofilament exam. Vibratory sensation sensed is intact with 128 Hz tuning fork Results AMB Hemoglobin A1c AMB Hemoglobin A1c 7.4 % Last Edit by MICHELE Jones on 04/10/23 08:46 Results Reviewed Results Reviewed: 04/10/23 08:38 Glucose, Whole Blood Routine Laboratory Last Values Glucose (Clinic) 141 mg/dL (60-115) H 04/10/23 08:38 Hgb A1c (Clinic) 7.4 % (4.0-6.0) H 04/10/23 08:46 Assessment & Plan Assessment & Plan (1) Diabetes type 2, uncontrolled: Code(s): E11.65 - Type 2 diabetes mellitus with hyperglycemia Qualifiers: Glycemic state: with hyperglycemia Qualified Code(s): E11.65 - Type 2 diabetes mellitus with hyperglycemia Plan: This is a 37-year-old male with a history of type 2 diabetes being treated with Trulicity, Jardiance and basal-bolus insulin with good but not glycemic control and known microvascular complications namely retinopathy. Plan is reinitiate the Lorelei . Not enough data to adjust regimen. Will have pt f/u with CDE and bring Lorelei into appointment. (2) Hyperlipidemia LDL goal <70: Code(s): E78.5 - Hyperlipidemia, unspecified Plan: Recheck lipid profile and other patients compliant with atorvastatin 80 mg Orders: Orders Lipid Panel Today E78.5 - Hyperlipidemia, unspecified AMB Hemoglobin A1c Today E11.9 - Type 2 diabetes mellitus without complications, Z79.4 - jail (current) use of insulin Coding Level of Care Code Est Pt Level 4 (42316) Diagnoses Diabetes type 2, uncontrolled E11.65 Glycemic state: with hyperglycemia Hyperlipidemia LDL goal <70 E78.5
[2023-04-10 08:32] VITALS: BP 130/78; PULSE 75; BMI 45.9
[2023-04-10 08:42] LABS: Glucose, Whole Blood 141 mg/dL (60-115)
== END 2023-04-10 15:49 | disposition home or self-care (01) ==
PROVIDERS: PCP Internal Medicine; Referring Provider Internal Medicine; Visit Provider Internal Medicine Endocrinology, Diabetes & Metabolism
DX: E11.65 Type 2 diabetes mellitus with hyperglycemia (principal); E11.69 Type 2 diabetes mellitus with other specified complication; E78.5 Hyperlipidemia, unspecified; Z79.4 Long term (current) use of insulin
CPT/HCPCS: 99214

== ENCOUNTER → 2023-04-10 08:24 | Outpatient (BNVA) | payer MEDICARE, MEDICAID, SELFPAY | PROVIDERS: Visit Provider Internal Medicine Endocrinology, Diabetes & Metabolism | DX: E11.65 Type 2 diabetes mellitus with hyperglycemia (principal); E78.5 Hyperlipidemia, unspecified; Z79.4 Long term (current) use of insulin | CPT/HCPCS: 82947; 83036; 99212 ==

== ENCOUNTER 2023-04-18 10:05 | Outpatient (REF) | payer MEDICARE, MEDICAID, SELFPAY ==
[2023-04-18 12:45] LABS: Cholesterol 119 mg/dL; HDL Cholesterol 30 mg/dL; LDL Cholesterol Calculated 76 mg/dl; Triglycerides 68 mg/dL
== END 2023-04-18 10:06 | disposition home or self-care (01) ==
LOC: HO.LAB 10:05
PROVIDERS: Absent Provider Internal Medicine Endocrinology, Diabetes & Metabolism; PCP Internal Medicine; Visit Provider Internal Medicine
DX: E78.5 Hyperlipidemia, unspecified (principal)
CPT/HCPCS: 36415; 80061

== ENCOUNTER 2023-12-20 09:16 | Outpatient (AMB) | payer MEDICARE, MEDICAID, SELFPAY ==
--- NOTE | 2023-12-20 09:19 | MHC.OFFVIS ---
Intake Vital Signs 12/20/23 09:20 Height 5 ft 7 in Weight 294 lb 1.546 oz BMI 46.1 BP 112/84 Blood Pressure Location Lt brachial Position Sitting Pulse 81 Pulse Source Pulse Oximeter Intake Visit Reasons: Type 2 DM-# not in service Intake Note: Patient presents today to follow up on D2MT. Last Diabetic Eye exam: 02/2023 Last Podiatry Visit: Doesn't have one. Random Glucose: 129mg/dl HgA1c: 7.8% Insole Stiffener Required: Yes Insole Stiffener Name: Abby Information Interpreted: non-clinical & clinical Accompanied by: Self / Same As Patient Allergies No Known Allergies Allergy (Verified 12/20/23 09:26) HPI HPI Comments History of Present Illness Details 38 yo male today for follow-up visit, for diabetes management His feeling well. Has no complaints. Glucometer download shows does not reveal any glucose levels. Patient never initiated process for sensor Occasional hypoglycemia- 1-2 X/wk He is currently on Tresiba 60 units at bed time, he reports been 100% adherent. Novolog 15 units with each meal 20 units with dinner ,Trulicity 3 mg weekly tolerating well. Jardiance 25 mg. No recent hypoglycemia He has DM type 2 diagnosed 2011 , PMD is Dr Watson. He has PMH of LENCHO on CPAP, he has been adherent with the CPAP, Obesity, HTN, Dyslipidemia, Depression. He has diarrhea with metformin. Complications: + retinopathy, no nephropathy, neuropathy, CVA, CAD, PVD. Last ophthalmology evaluation needs to make appt : + retinopathy. no Photocoagulation or VEGF. Needs to see optho He denies nocturia, denies polydipsia, + polyuria, no blurred vision, denies numbness and tingling's, his weight is stable. Laboratory Tests 08/30/19 02/26/20 04/30/20 10:48 10:07 13:12 Sodium Potassium Creatinine Estimated GFR POC Glucose Fasting Glucose Hgb A1c Fingerstic k 8.4 Hemoglobin A1c % Calcium Albumin LDL Cholesterol Di rect 77 LDL Cholesterol, C alc 72 25-OH Vitamin D To zach Ur Random Microalb umin Microalb/Creat Rat io 04/30/20 04/30/20 08/11/20 13:19 14:20 09:40 Sodium 138 Potassium 4.9 Creatinine 0.81 Estimated GFR > 60 POC Glucose 116 H Fasting Glucose 163 H Hgb A1c Fingerstic k Hemoglobin A1c % Calcium 9.0 Albumin 4.0 LDL Cholesterol Di rect LDL Cholesterol, C alc 25-OH Vitamin D To zach 32.8 Ur Random Microalb umin < 5.0 Microalb/Creat Rat io TNP 08/11/20 09:40 Sodium Potassium Creatinine Estimated GFR POC Glucose Fasting Glucose Hgb A1c Fingerstic k Hemoglobin A1c % 7.7 Calcium Albumin LDL Cholesterol Di rect LDL Cholesterol, C alc 25-OH Vitamin D To zach Ur Random Microalb umin Microalb/Creat Rat io Laboratory Tests 08/30/19 08/30/19 02/26/20 10:48 10:48 10:07 Hgb Hct Sodium 141 Potassium 4.4 BUN 11 D Creatinine 0.73 Est GFR (Non-Af Am er) > 60 POC Glucose Fasting Glucose 124 H Hgb A1c Fingerstic k Calcium 8.8 D AST 19 ALT 37 Alkaline Phosphata se 123 H Total Protein 7.1 Albumin 3.9 Triglycerides 77 Cholesterol 117 LDL Cholesterol Di rect 77 LDL Cholesterol, C alc 72 HDL Cholesterol 30 25-OH Vitamin D To zach 25.0 Ur Random Creatini ne Ur Random Microalb umin Microalb/Creat Rat io 02/26/20 04/30/20 04/30/20 10:07 13:12 13:19 Hgb 14.0 Hct 45.1 Sodium Potassium BUN Creatinine Est GFR (Non-Af Am er) POC Glucose 116 H Fasting Glucose Hgb A1c Fingerstic k 8.4 Calcium AST ALT Alkaline Phosphata se Total Protein Albumin Triglycerides Cholesterol LDL Cholesterol Di rect LDL Cholesterol, C alc HDL Cholesterol 25-OH Vitamin D To zach Ur Random Creatini ne Ur Random Microalb umin Microalb/Creat Rat io 04/30/20 14:20 Hgb Hct Sodium Potassium BUN Creatinine Est GFR (Non-Af Am er) POC Glucose Fasting Glucose Hgb A1c Fingerstic k Calcium AST ALT Alkaline Phosphata se Total Protein Albumin Triglycerides Cholesterol LDL Cholesterol Di rect LDL Cholesterol, C alc HDL Cholesterol 25-OH Vitamin D To zach Ur Random Creatini ne 84.38 Ur Random Microalb umin < 5.0 Microalb/Creat Rat io [facility] Medical History Anxiety Candidal balanitis Depression Diabetes type 2, uncontrolled Dyslipidemia Hypertension Morbid obesity Sleep apnea Vitamin D deficiency Surgical History No pertinent past surgical history Family History Father Hypertension Mother Type 2 diabetes mellitus Obesity Social History (System 10/16/23 @ 15:15 by Zenaida Ascencio) Housing: Apartment Alcohol intake: former Patient Tobacco Use Status: Current everyday Tobacco user Tobacco use type: Cigarette Cigarettes Per Day: 10 e-Cigarette/Vaping Use: Never Used Second Hand Smoke Exposure: No service: No Current occupational status: employed Current occupational exposures/hazards: No Cognitive needs: No Hearing needs: No Vision needs: Yes Physical Exam Vital Signs: Last Vital Signs Pulse 81 12/20/23 09:20 BP 112/84 12/20/23 09:20 BMI result Body Mass Index 46.1 Absence of Cushingoid features. Absence of acromegalic features. Neck exam reveals nl size thyroid about 15 gms. No thyroid nodules palpable. No carotid bruits present. Lungs CTA. Heart S1 S2, Reg R/R. No M/R/ G. Skin exam reveals absence of vitiligo or acanthosis nigricans. Abdominal exam reveals Soft NT/ND with NA BS. No organomegaly present. Neck Other: . Extrem Other: Visual exam of foot performed. No ulcerations or open lesions. No onchomycosis, no callouses.Pulses 2 + distally Sensation intact to monofilament exam. Vibratory sensation sensed is intact with 128 Hz tuning fork Results AMB Hemoglobin A1c AMB Hemoglobin A1c 7.8 % Last Edit by MICHELE Rushing on 12/20/23 09:38 Assessment & Plan Assessment & Plan (1) Diabetes type 2, uncontrolled: Code(s): E11.65 - Type 2 diabetes mellitus with hyperglycemia Qualifiers: Glycemic state: with hyperglycemia Qualified Code(s): E11.65 - Type 2 diabetes mellitus with hyperglycemia Plan: This is a 37-year-old male with a history of type 2 diabetes being treated with Trulicity, Jardiance and basal-bolus insulin withfair but not optimal glycemic control and known microvascular complications namely retinopathy. Plan is reinitiate the Lorelei . Not enough data to adjust regimen. Will have pt f/u with CDE and bring Lorelei into appointment. 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
[2023-12-20 09:20] VITALS: BP 112/84; PULSE 81; BMI 46.1
[2023-12-20 11:11] LABS: Glucose, Whole Blood 129 mg/dL (60-115)
== END 2023-12-20 09:45 | disposition home or self-care (01) ==
PROVIDERS: PCP Internal Medicine; Visit Provider Internal Medicine Endocrinology, Diabetes & Metabolism
DX: Z13.9 Encounter for screening, unspecified (principal); E11.9 Type 2 diabetes mellitus without complications; Z79.4 Long term (current) use of insulin; E11.65 Type 2 diabetes mellitus with hyperglycemia; E78.5 Hyperlipidemia, unspecified
CPT/HCPCS: 99214

== ENCOUNTER → 2023-12-20 09:16 | Outpatient (BNVA) | payer MEDICARE, MEDICAID, SELFPAY | PROVIDERS: PCP Internal Medicine; Visit Provider Internal Medicine Endocrinology, Diabetes & Metabolism | DX: E11.65 Type 2 diabetes mellitus with hyperglycemia (principal); E78.5 Hyperlipidemia, unspecified; Z79.4 Long term (current) use of insulin | CPT/HCPCS: 82947; 83036; 99212 ==

== ENCOUNTER 2024-01-10 08:43 | Outpatient (AMB) | payer MEDICARE, MEDICAID, SELFPAY ==
--- NOTE | 2024-01-10 09:22 | A.OFFVIS_ITS ---
Intake Intake Visit Reasons: T2DM/CONFIRMED Dairy Quality Assurance Officer Required: Yes Dairy Quality Assurance Officer Language: Poultry Farm Worker Name: Getachew [facility] [place] Accompanied by: Other Relationship Allergies No Known Allergies Allergy (Verified 12/20/23 09:26) HPI Comprehensive Diabetes Asmnt Most Recent Diabetes Results: Microalb/Creat Ratio 15.6 ug/mg cr 12/08/22 Cholesterol 119 mg/dL 04/18/23 HDL Cholesterol 30 mg/dL 04/18/23 Triglycerides 68 mg/dL 04/18/23 Creatinine 0.79 mg/dL (0.5-1.4) 12/16/22 Blood Urea Nitrogen 20 mg/dL (9-16) H 12/16/22 Sodium 141 mmol/L (135-145) 12/16/22 Potassium 5.0 mmol/L (3.3-5.1) 12/16/22 Chloride 105 mmol/L (96-108) 12/16/22 Carbon Dioxide 28 mmol/L (22-29) 12/16/22 Calcium 9.6 mg/dL (8.4-10.2) 12/16/22 AST 29 U/L (5-37) 12/16/22 ALT 49 U/L (0-40) H 12/16/22 Total Protein 7.8 g/dL (6.5-8.0) 12/16/22 Albumin 4.1 g/dL (3.5-5.0) 12/16/22 [facility] Medical History Anxiety Candidal balanitis Depression Diabetes type 2, uncontrolled Dyslipidemia Hypertension Morbid obesity Sleep apnea Vitamin D deficiency Surgical History No pertinent past surgical history Family History Father Hypertension Mother Type 2 diabetes mellitus Obesity Social History Housing: Apartment Alcohol intake: former Patient Tobacco Use Status: Current everyday Tobacco user Tobacco use type: Cigarette Cigarettes Per Day: 10 e-Cigarette/Vaping Use: Never Used Second Hand Smoke Exposure: No service: No Current occupational status: employed Current occupational exposures/hazards: No Cognitive needs: No Hearing needs: No Vision needs: Yes Assessment & Plan Assessment & Plan (1) Diabetes mellitus, with long-term current use of insulin: Code(s): E11.9 - Type 2 diabetes mellitus without complications; 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 Plan: CGM Info Instructed Pt on what CGM can and can't do CGM Can: Give Pt minute by minute reading of glucose levels Displays glucose trend arrows that represents the direction glucose levels are fluctuating Give insight on decisions about how to dose insulin CGM cannot: Improve glucose control on its own Completely eliminate the need for all finger sticks Make dosing decision for you CGM is the reading of glucose in the interstitial fluid not actual blood glucose, finger sticks are still necessary when Pt's symptom?s do not match sensor reading and if sensors prompts Pt to do a fingerstick Patient? is interested in the Reviewed guidelines for obtaining CGM Patient is interested in starting Dexcom G7 Reviewed delay of CGM from fingersticks Reminded pt that if symptoms do not match sensor still needs to check fingersticks. Patient is also interested in Ceque insulin delivery device Coding Level of Care Code Est Pt Level 1 (88147) Diagnoses Diabetes mellitus, with long-term current use of insulin E11.9; Z79.4
== END 2024-01-10 09:27 | disposition home or self-care (01) ==
PROVIDERS: PCP Internal Medicine; Visit Provider Registered Nurse Diabetes Educator
DX: E11.9 Type 2 diabetes mellitus without complications (principal); Z79.4 Long term (current) use of insulin

== ENCOUNTER → 2024-01-10 08:43 | Outpatient (BNVA) | payer MEDICARE, MEDICAID, SELFPAY | PROVIDERS: PCP Internal Medicine; Visit Provider Registered Nurse Diabetes Educator | DX: E11.9 Type 2 diabetes mellitus without complications (principal); Z79.4 Long term (current) use of insulin | CPT/HCPCS: 99211 ==

== ENCOUNTER 2024-04-16 10:57 | Outpatient (AMB) | payer MEDICARE, MEDICAID, SELFPAY ==
[2024-04-16 11:18] VITALS: BP 92/72; PULSE 79; BMI 48.3
--- NOTE | 2024-04-16 11:18 | A.OFFVIS_ITS ---
Vital Signs 04/16/24 11:18 Height 5 ft 7 in Weight 308 lb 3.3 oz BMI 48.3 BP 92/72 Blood Pressure Location Lt brachial Position Sitting Pulse 79 Pulse Source Pulse Oximeter Intake Visit Reasons: Type 2 DM/LVM Intake Note: New Patient presents today to establish treatment for Type 2 Diabetes Mellitus: Most recent Eye Exam: 2022 Most recent Podiatry Exam: Does not see a Digital Sales Manager Most recent HbA1c: 8.0% Random Glucose- 150 mg/dL Cardiac Exercise Physiologist Required: Yes Cardiac Exercise Physiologist Language: Energy Attorney Name: Patricia Information Interpreted: non-clinical & clinical Accompanied by: Self / Same As Patient Allergies No Known Allergies Allergy (Verified 04/16/24 11:23) HPI Comments Details: This is a 38-year-old male with a past medical history of type 2 diabetes, hypertension, obesity, dyslipidemia, obstructive sleep apnea and depression with anxiety presenting for diabetic follow-up. Reviewed CGM data during the last 2 weeks. Average blood glucose 206. Readings/day 2.8 Highest 307 Low 78 Target range 38%, high 39%, very high 23%, no hypoglycemia Hemoglobin A1c 8% today. He is currently on Tresiba 60 units at bed time. Sometimes he takes in the morning, and sometimes he takes at night. Patient taking 10-12 units of Fiasp with meals. Frequently only has coffee in the morning and then eats a meal around 02:00 o'clock and then in the evening has dinner. Frequently forgets to take insulin prior to meal and may take it after he eats. Tolerating Trulicity 3 mg and Jardiance 25 mg. Type 2 diabetes diagnosed in 2011. He had diarrhea with metformin. Complications: + retinopathy. Due for eye exam. Denies neuropathy symptoms. Patient says he had about 3 low readings since he was last seen here in November. He treated 1 with a meal and 1 with candy. He had symptoms with hypoglycemia. He stopped lisinopril about 4 months ago because his blood pressures have run low since he lost some weight. His blood pressure off of the medication today is 92/72. No dizziness. ROS: Constitutional: No unexplained weight loss, fever, chills, fatigue or night sweats. Eyes: No vision changes Respiratory: No shortness of breath Cardiovascular: No chest pain Gastrointestinal: No anorexia, nausea, vomiting or diarrhea. No abdominal pain Neurologic: No headache, dizziness, syncope Endocrine: No cold or heat intolerance. No polyuria or polydipsia. Physical exam: Constitutional: Alert, in no distress. Eyes: Pupils are equal, round and reactive to light. Extraocular muscles intact. Neck: Supple, Full range of motion. No lymphadenopathy. Respiratory: Clear to auscultation. Cardiovascular: S1 S2 regular. No murmurs. Neurologic: No focal neurological deficits Extremities: Warm and well perfused. No clubbing, cyanosis or edema. Mildly decreased vibratory sensation in the toes. Sensation to monofilament testing intact. Psychiatric: Normal mood and affect [facility] Medical History Anxiety Candidal balanitis Depression Diabetes type 2, uncontrolled Dyslipidemia Hypertension Morbid obesity Sleep apnea Vitamin D deficiency Surgical History No pertinent past surgical history Family History Father Hypertension Mother Type 2 diabetes mellitus Obesity Social History Housing: Apartment Alcohol intake: former Patient Tobacco Use Status: Current everyday Tobacco user Tobacco use type: Cigarette Cigarettes Per Day: 10 e-Cigarette/Vaping Use: Never Used Second Hand Smoke Exposure: No service: No Current occupational status: employed Current occupational exposures/hazards: No Cognitive needs: No Hearing needs: No Vision needs: Yes Physical Exam Vital Signs: Last Vital Signs Pulse 79 04/16/24 11:18 BP 92/72 04/16/24 11:18 BMI result Body Mass Index 48.3 Results AMB Hemoglobin A1c AMB Hemoglobin A1c 8.0 % Last Edit by MICHELE Rushing on 04/16/24 11:36 Results Reviewed Results Reviewed: Laboratory Last Values Glucose (Clinic) 150 mg/dL (60-115) H 04/16/24 11:26 Hgb A1c (Clinic) 8.0 % (4.0-6.0) H 04/16/24 11:35 Assessment & Plan Assessment & Plan (1) Diabetes mellitus, with long-term current use of insulin: Code(s): E11.9 - Type 2 diabetes mellitus without complications; Z79.4 - FDC (current) use of insulin Category: Medical Qualifiers: Diabetes mellitus type: type 2 Diabetes mellitus complication status: with ophthalmic complications Diabetes mellitus complication detail: with diabetic retinopathy Diabetic retinopathy severity: with unspecified retinopathy severity Diabetes mellitus macular edema: without macular edema Laterality: bilateral Qualified Code(s): E11.319 - Type 2 diabetes mellitus with unspecified diabetic retinopathy without macular edema; Z79.4 - 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 Patient encouraged to scan sensor 4 times daily. Reviewed available data with Dr. Hawk. Will increase short-acting insulin to 15 units before each meal. Patient educated about taking short-acting insulin consistently. He preferred NovoLog. States this worked better for him (both faster and more effective for him). I will see if this can get approved by insurance. Continue Tresiba 60 units at bedtime, Trulicity 3 mg weekly and Jardiance 25 mg daily. Reviewed treatment for hypoglycemia. Use 4 oz of fruit juice, 7 or 8 chewy candies like skittles or small pack of raisins. Recheck sugar in 15 minutes. Will have him remain off lisinopril given soft BP. If BP increases I would have a low threshold to add lisinopril 2.5 mg for renal protection. Referred for eye exam. Refer to perinatal educator. He will return for fasting labs. Due for lipids. Microalbumin order is already in the EMR. Follow up in 3 months for diabetes. Orders: Orders Lipid Panel Today E11.9 - Type 2 diabetes mellitus without complications Basic Metabolic Panel Today E11.9 - Type 2 diabetes mellitus without complications AMB Hemoglobin A1c Today E11.65 - Type 2 diabetes mellitus with hyperglycemia, Z13.9 - Encounter for screening, unspecified Referrals Ophthalmology Referral E11.65 - Type 2 diabetes mellitus with hyperglycemia Diabetes Education Referral E11.65 - Type 2 diabetes mellitus with hyperglycemia Medications: New Novolog FlexPen U-100 Insulin (insulin aspart U-100) Administer within 5 to 10 minutes before a meal 15 units (0.15 mL) subcut TID 15 mL 5RF NS Refilled insulin degludec (Tresiba FlexTouch U-200 insulin) 60 units (0.3 mL) subcut BEDTIME 9 mL 3RF E11.65 - Type 2 diabetes mellitus with hyperglycemia Discontinued lisinopril Discontinued Reason: Doctor's Order 10 mg PO DAILY 90 tabs 3RF insulin aspart (niacinamide) 100 unit/mL (3 mL) (Fiasp FlexTouch U-100 Insulin) Discontinued Reason: Doctor's Order 15 units subcut TID 15 mL 5RF Coding Level of Care Code Est Pt Level 4 (15904) Complex EM visit Add On G2211 Diagnoses Type 2 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
[2024-04-16 11:30] LABS: Glucose, Whole Blood 150 mg/dL (60-115)
== END 2024-04-16 12:02 | disposition home or self-care (01) ==
PROVIDERS: PCP Internal Medicine; Visit Provider Physician Assistant Medical
DX: E11.319 Type 2 diabetes mellitus with unspecified diabetic retinopathy without macular edema (principal); Z79.4 Long term (current) use of insulin; I10 Essential (primary) hypertension; E66.01 Morbid (severe) obesity due to excess calories; Z13.9 Encounter for screening, unspecified; E11.65 Type 2 diabetes mellitus with hyperglycemia
CPT/HCPCS: 99214; G2211

== ENCOUNTER → 2024-04-16 10:57 | Outpatient (BNVA) | payer MEDICARE, MEDICAID, SELFPAY | PROVIDERS: PCP Internal Medicine; Visit Provider Physician Assistant Medical | DX: E11.319 Type 2 diabetes mellitus with unspecified diabetic retinopathy without macular edema (principal); I10 Essential (primary) hypertension; E66.01 Morbid (severe) obesity due to excess calories; Z68.42 Body mass index [BMI] 45.0-49.9, adult; Z79.4 Long term (current) use of insulin | CPT/HCPCS: 82947; 83036; 99212 ==

== ENCOUNTER 2024-06-10 10:00 | Outpatient (REF) | payer MEDICARE, MEDICAID, SELFPAY ==
[2024-06-10 12:04] LABS: Creatinine Urine 85.85 mg/dL; Microalbumin Urine < 5.0 mg/L
[2024-06-10 12:05] LABS: Anion Gap 11 (12-20); Blood Urea Nitrogen 13 mg/dL (9-16); Calcium 9.5 mg/dL (8.4-10.2); Carbon Dioxide 29 mmol/L (22-29); Chloride 104 mmol/L (96-108); Cholesterol 183 mg/dL (<200); Estimated Glomerular Filt Rate > 60; Glucose Random 133 mg/dL (60-115); HDL Cholesterol 36 mg/dL (>40); LDL Cholesterol Calculated 116 mg/dL (<100); Potassium 4.1 mmol/L (3.3-5.1); Sodium 140 mmol/L (135-145); Triglycerides 158 mg/dL (<150)
== END 2024-06-10 10:01 | disposition home or self-care (01) ==
LOC: HO.LAB 10:00
PROVIDERS: Internal Medicine Endocrinology, Diabetes & Metabolism; PCP Internal Medicine; Visit Provider Physician Assistant Medical
DX: E11.9 Type 2 diabetes mellitus without complications (principal); E11.65 Type 2 diabetes mellitus with hyperglycemia
CPT/HCPCS: 36415; 80048; 80061; 82043; 82570

== ENCOUNTER 2024-08-02 12:52 | Outpatient (AMB) | payer MEDICARE, MEDICAID, SELFPAY ==
--- NOTE | 2024-08-02 12:59 | A.OFFVIS_ITS ---
Vital Signs 08/02/24 13:01 Height 5 ft 7 in Weight 302 lb 0.533 oz BMI 47.3 BP 120/80 Blood Pressure Location Rt brachial Position Sitting Pulse 95 Pulse Source Pulse Oximeter Intake Visit Reasons: T2DM/CONFIRMED Intake Note: Patient presents today for a follow-up Type 2 Diabetes Mellitus: Most recent Eye Exam: 2022 Most recent Podiatry Exam: Does not see a Small Stock Facer Most recent HbA1c: 7.9%, 08/02/2024 Random Glucose- 131 mg/dL, Today Weatherization Field Technician Required: Yes Weatherization Field Technician Language: Clinical Application Consultant Services: Weatherization Field Technician Offered & Declined Accompanied by: Significant Other Allergies No Known Allergies Allergy (Verified 04/16/24 11:23) Medication List - Last Reconciled 08/02/24 by VIKA Ravi atorvastatin 40 mg PO BEDTIME blood sugar diagnostic (FreeStyle Lite Strips) USE 1 STRIP DIRECTED 4 TIMES A DAY --INSURANCE PAYS FOR TESTING 3 TIMES DAILY blood-glucose meter (FreeStyle Lite Meter kit) checks 4 X/day cholecalciferol (vitamin D3) 50 mcg PO DAILY 90 days dulaglutide (Trulicity) 3 mg (0.5 mL) subcut QWEEK empagliflozin (Jardiance) 25 mg PO DAILY flash glucose scanning reader (FreeStyle Lorelei 2 Harwood) As directed flash glucose sensor (FreeStyle Lorelei 2 Sensor kit) As directed FreeStyle Lancets (lancets) 3 times a day NS insulin aspart U-100 (Novolog FlexPen U-100 Insulin aspart) 15 units (0.15 mL) subcut TID insulin degludec (Tresiba FlexTouch U-200 insulin) 64 units subcut BEDTIME pen needle, diabetic 4 times a day tirzepatide (Mounjaro) 2.5 mg (0.5 mL) subcut QWEEK HPI Comments Details: This is a 38-year-old male with a past medical history of type 2 diabetes, hypertension, obesity, dyslipidemia, obstructive sleep apnea and depression with anxiety presenting for diabetic management. Accompanied by his partner. Reviewed glucometer download: In range 37% 50% hyperglycemia 181-250 mg/dL 13% very high over 258 mg/dL No hypoglycemia Highest to 87, lowest 103 2.1 readings per day Patient experiences hyperglycemia postprandially and late at night. Hemoglobin A1c 7.9% today. He is currently on Tresiba 60 units every morning. Patient taking 15 units of Fiasp with meals. Frequently only has coffee in the morning and then eats a meal around 02:00 o'clock and sometimes has dinner. Tolerating Trulicity 3 mg and Jardiance 25 mg. His weight has been fairly stagnant on Trulicity, and he has a decreased appetite with this medication. Type 2 diabetes diagnosed in 2011. He had diarrhea with metformin. Complications: + retinopathy. Due for eye exam. Denies neuropathy symptoms. Denies episodes of hypoglycemia. He was previously on lisinopril, but he discontinued it, and his blood pressures are still normal. He also decreased atorvastatin at the same time, and his LDL cholesterol is now above 100. He continues to smoke though I again told him he needs to work on quitting and should discuss this with his PCP. ROS: Constitutional: No unexplained weight loss, fever, chills, fatigue or night sweats. Eyes: No vision changes Respiratory: No shortness of breath Cardiovascular: No chest pain Gastrointestinal: No anorexia, nausea, vomiting or diarrhea. No abdominal pain Neurologic: No headache, dizziness, syncope Endocrine: No cold or heat intolerance. No polyuria or polydipsia. Physical exam: Constitutional: Alert, in no distress. Eyes: Pupils are equal, round and reactive to light. Extraocular muscles intact. Neck: Supple, Full range of motion. No lymphadenopathy. Respiratory: Clear to auscultation. Cardiovascular: S1 S2 regular. No murmurs. Right foot: Warm and well perfused. No clubbing, cyanosis or edema. DP pulse 3+. Intact vibratory sensation. Intact sensation to monofilament. Left foot: Warm and well perfused. No clubbing, cyanosis or edema. DP pulse 3+. Intact vibratory sensation. Intact sensation to monofilament. [facility] Medical History Anxiety Candidal balanitis Depression Diabetes type 2, uncontrolled Dyslipidemia Hypertension Morbid obesity Sleep apnea Vitamin D deficiency Surgical History No pertinent past surgical history Family History Father Hypertension Mother Type 2 diabetes mellitus Obesity Social History Housing: Apartment Alcohol intake: former Patient Tobacco Use Status: Current everyday Tobacco user Tobacco use type: Cigarette Cigarettes Per Day: 10 e-Cigarette/Vaping Use: Never Used Second Hand Smoke Exposure: No service: No Current occupational status: employed Current occupational exposures/hazards: No Cognitive needs: No Hearing needs: No Vision needs: Yes Physical Exam Vital Signs: Last Vital Signs Pulse 95 08/02/24 13:01 BP 120/80 08/02/24 13:01 BMI result Body Mass Index 47.3 Results AMB Hemoglobin A1c AMB Hemoglobin A1c 7.9 % Last Edit by MICHELE Avalos on 08/02/24 13:47 Results Reviewed Results Reviewed: Laboratory Last Values Glucose (Clinic) 131 mg/dL (60-115) H 08/02/24 13:06 Laboratory Tests 04/16/24 06/10/24 06/10/24 11:35 10:27 10:28 Creatinine 0.81 Estimated GFR > 60 Hgb A1c (Clinic) 8.0 H Cholesterol 183 LDL Cholesterol, Calc 116 H HDL Cholesterol 36 L Urine Creatinine 85.85 Urine Microalbumin < 5.0 Microalb/Creat Ratio TNP Assessment & Plan Assessment & Plan (1) Diabetes mellitus, with long-term current use of insulin: Code(s): E11.9 - Type 2 diabetes mellitus without complications; 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.4 - 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 of insulin Category: Medical Qualifiers: Diabetes mellitus complication detail: with diabetic retinopathy Diabetes mellitus complication status: with ophthalmic complications Diabetes mellitus macular edema: without macular edema Diabetes mellitus type: type 2 Diabetic retinopathy severity: with unspecified retinopathy severity Laterality: bilateral Qualified Code(s): E11.319 - Type 2 diabetes mellitus with unspecified diabetic retinopathy without macular edema; Z79.4 - FDC (current) use of insulin (2) Hypertension: Code(s): I10 - Essential (primary) hypertension Category: Medical Qualifiers: Hypertension type: primary hypertension Qualified Code(s): I10 - Essential (primary) hypertension (3) Morbid obesity: Code(s): E66.01 - Morbid (severe) obesity due to excess calories Category: Medical Plan In summary this is a 38-year-old male with suboptimally controlled type 2 diabetes. Increase Tresiba to 64 units every morning. If he develops low blood sugars he was instructed to go back to 60 units. Patient says NovoLog was more effective for him. He got a phone call that it was approved by insurance. He will switch Fiasp to NovoLog.. Reviewed proper adminstation. Switch Trulicity to Mounjaro. Side effects and administation reviewed. Reviewed proper treatment of hypoglycemia. If you experience low blood sugar, treat this by eating a chewable fruit candy like skittles or jelly beans (about 8 pieces), 4 ounces (1/2 cup) of fruit juice (not diet), 1 tablespoon of honey or 4 glucose tablets. If your blood sugar is under 50, take double the amount of one of the above. Recheck your blood sugar in 15 minutes. Glucose tablets sent to pharmacy. Follow up in 1 month for diabetes. Orders: Orders AMB Hemoglobin A1c Today E11.319 - Type 2 diabetes mellitus with unspecified diabetic retinopathy without macular edema, Z79.4 - FDC (current) use of insulin Medications: New insulin aspart U-100 (Novolog FlexPen U-100 Insulin aspart) Administer within 5 to 10 minutes before a meal. 15 units (0.15 mL) subcut TID 15 mL 3RF glucose (Dex4 Glucose Quick Dissolve) until symptoms of low blood sugar are controlled and blood glucose >70. 16 grams (4 x 4 gram) PO Q15M PRN 10 tabs 3RF hypoglycemia blood glucose <70 blood-glucose sensor (FreeStyle Lorelei 3 Sensor device) apply new sensor every 14 days 2 ea 11RF tirzepatide (Mounjaro) for 4 weeks 2.5 mg (0.5 mL) subcut QWEEK 2 mL 0RF atorvastatin 40 mg PO BEDTIME 90 tabs 3RF blood-glucose meter,continuous (FreeStyle Lorelei 3 Harwood) Use daily to monitor blood glucose levels continuously. 1 ea 0RF Discontinued atorvastatin Discontinued Reason: Doctor's Order 80 mg PO BEDTIME 30 tabs 3RF insulin aspart (niacinamide) 100 unit/mL (3 mL) (Fiasp FlexTouch U-100 Insulin) Discontinued Reason: Doctor's Order 15 units subcutaneously 3 times a day; Inject at the beginning of or within 20 minutes after starting a meal 15 mL 5RF Patient Instructions: Increase Tresiba to 64 units every morning. If you develop low blood sugars decrease to 60 units in the morning again. Switch Fiasp to Novolog and continue 15 units before meal. Start Mounjaro 2.5 mg 1 week after last dose of Trulicity and then stop Trulicity. Restart Atorvastatin 40 mg at bedtime. If you experience low blood sugar, treat this by eating a chewable fruit candy like skittles or jelly beans (about 8 pieces), 4 ounces (1/2 cup) of fruit juice (not diet), 1 tablespoon of honey or 4 glucose tablets. If your blood sugar is under 50, take double the amount of one of the above. Recheck your blood sugar in 15 minutes. Coding Level of Care Code Est Pt Level 4 (77976) Complex EM visit Add On G2211 Diagnoses Type 2 diabetes mellitus with both eyes affected by retinopathy without macular edema, with long-term current use of insulin, unspecified retinopathy severity E11.319; Z79.4 Diabetes mellitus complication detail: with diabetic retinopathy Diabetes mellitus complication status: with ophthalmic complications Diabetes mellitus macular edema: without macular edema Diabetes mellitus type: type 2 Diabetic retinopathy severity: with unspecified retinopathy severity Laterality: bilateral Primary hypertension I10 Hypertension type: primary hypertension Morbid obesity E66.01
[2024-08-02 13:01] VITALS: BP 120/80; PULSE 95; BMI 47.3
[2024-08-02 13:13] LABS: Glucose, Whole Blood 131 mg/dL (60-115)
== END 2024-08-02 13:42 | disposition home or self-care (01) ==
PROVIDERS: PCP Internal Medicine; Visit Provider Physician Assistant Medical
DX: E11.319 Type 2 diabetes mellitus with unspecified diabetic retinopathy without macular edema (principal); Z79.4 Long term (current) use of insulin; I10 Essential (primary) hypertension; E66.01 Morbid (severe) obesity due to excess calories

== ENCOUNTER → 2024-08-02 12:52 | Outpatient (BNVA) | payer MEDICARE, MEDICAID, SELFPAY | PROVIDERS: PCP Internal Medicine; Visit Provider Physician Assistant Medical | DX: E11.319 Type 2 diabetes mellitus with unspecified diabetic retinopathy without macular edema (principal); I10 Essential (primary) hypertension; E66.01 Morbid (severe) obesity due to excess calories; Z79.4 Long term (current) use of insulin; Z68.42 Body mass index [BMI] 45.0-49.9, adult | CPT/HCPCS: 82947; 83036; 99212 ==

== ENCOUNTER 2024-09-06 11:03 | Outpatient (AMB) | payer MEDICARE, MEDICAID, SELFPAY ==
--- NOTE | 2024-09-06 11:12 | A.OFFVIS_ITS ---
Vital Signs 09/06/24 11:13 Height 5 ft 7 in Weight 304 lb 3.806 oz BMI 47.6 BP 122/80 Blood Pressure Location Rt brachial Position Sitting Pulse 85 Pulse Source Pulse Oximeter Intake Visit Reasons: [id number] Intake Note: Patient presents today for a follow-up Type 2 Diabetes Mellitus: Last Diabetic eye exam was on: DUE Last Podiatry exam was on: Does not see a Custom Ski Maker Most recent HbA1c: 7.9%, 08/02/2024 Random Glucose- 155 mg/dL, Today Animal Husbandry Professor Required: Yes Animal Husbandry Professor Language: Music Industry Intern Services: Animal Husbandry Professor Offered & Declined Accompanied by: Significant Other Allergies No Known Allergies Allergy (Verified 09/06/24 11:17) HPI Comments Details: This is a 38-year-old male with a past medical history of type 2 diabetes, hypertension, obesity, dyslipidemia, obstructive sleep apnea and depression with anxiety presenting for diabetic management. Accompanied by his partner. Reviewed glucometer download dated August 23 through 09/06/2024. Average glucose 182 In range 50% Highest 245 Lowest 122 2.4 readings per day. Denoes low blood sugars. Hemoglobin A1c 7.9% 08/02/24. He is currently on Tresiba 64 units every morning. Patient taking 15 units of Fiasp with meals. Took 2nd dose of Mounjaro 2.5 mg weekly today (switched from Trulicity). Taking Jardiance 25 mg. Type 2 diabetes diagnosed in 2011. He had diarrhea with metformin. Complications: + retinopathy. Due for eye exam. Denies neuropathy symptoms. He was previously on lisinopril, but he discontinued it, and his blood pressures are still normal. He restarted atorvastatin a month ago for LDL above goal. ROS: Constitutional: No unexplained weight loss, fever, chills, fatigue or night sweats. Eyes: No vision changes Respiratory: No shortness of breath Cardiovascular: No chest pain Gastrointestinal: No anorexia, nausea, vomiting or diarrhea. No abdominal pain Neurologic: No headache, dizziness, syncope Endocrine: No cold or heat intolerance. No polyuria or polydipsia. Physical exam: Constitutional: Alert, in no distress. Eyes: Pupils are equal, round and reactive to light. Extraocular muscles intact. Neck: Supple, Full range of motion. No lymphadenopathy. Respiratory: Clear to auscultation. Cardiovascular: S1 S2 regular. No murmurs. [facility] Medical History Anxiety Candidal balanitis Depression Diabetes type 2, uncontrolled Dyslipidemia Hypertension Morbid obesity Sleep apnea Vitamin D deficiency Surgical History No pertinent past surgical history Family History Father Hypertension Mother Type 2 diabetes mellitus Obesity Social History Housing: Apartment Alcohol intake: former Patient Tobacco Use Status: Current everyday Tobacco user Tobacco use type: Cigarette Cigarettes Per Day: 10 e-Cigarette/Vaping Use: Never Used Second Hand Smoke Exposure: No service: No Current occupational status: employed Current occupational exposures/hazards: No Cognitive needs: No Hearing needs: No Vision needs: Yes Physical Exam Vital Signs: Last Vital Signs Pulse 85 09/06/24 11:13 BP 122/80 09/06/24 11:13 BMI result Body Mass Index 47.6 Results Reviewed Results Reviewed: Laboratory Last Values Glucose (Clinic) 155 mg/dL (60-115) H 09/06/24 11:18 Assessment & Plan Assessment & Plan (1) Diabetes mellitus, with long-term current use of insulin: Code(s): E11.9 - Type 2 diabetes mellitus without complications; Z79.4 - alf (current) use of insulin Category: Medical Qualifiers: Diabetes mellitus complication detail: with diabetic retinopathy Diabetes mellitus complication status: with ophthalmic complications Diabetes mellitus macular edema: without macular edema Diabetes mellitus type: type 2 Diabetic retinopathy severity: with unspecified retinopathy severity Laterality: bilateral Qualified Code(s): E11.319 - Type 2 diabetes mellitus with unspecified diabetic retinopathy without macular edema; Z79.4 - alf (current) use of insulin (2) Hypertension: Code(s): I10 - Essential (primary) hypertension Category: Medical Qualifiers: Hypertension type: primary hypertension Qualified Code(s): I10 - Essential (primary) hypertension (3) Morbid obesity: Code(s): E66.01 - Morbid (severe) obesity due to excess calories Category: Medical Plan In summary this is a 38-year-old male with suboptimally controlled type 2 diabetes. Continue Tresiba 64 units every morning. Patient says NovoLog was more effective for him. He got a phone call that it was approved by insurance, but the pharmacy did not dispnse it. Send new Rx and we will contact pharmacy. Finish current Rx of Mounjaro then increase to 5 mg weekly. Continue Jardiance 25 mg. Following up with pharmacy regarding CGM Rx. Discussed The Right BMI lizz. Patient defers today. Reviewed proper treatment of hypoglycemia. If you experience low blood sugar, treat this by eating a chewable fruit candy like skittles or jelly beans (about 8 pieces), 4 ounces (1/2 cup) of fruit juice (not diet), 1 tablespoon of honey or 4 glucose tablets. If your blood sugar is under 50, take double the amount of one of the above. Recheck your blood sugar in 15 minutes. Glucose tablets sent to pharmacy. Follow up in 6 weeks for Type II diabetes. Medications: New tirzepatide (Mounjaro) 5 mg (0.5 mL) subcut QWEEK 2 mL 0RF Refilled blood-glucose meter (FreeStyle Lite Meter kit) checks 4 X/day 1 ea 0RF E11.65 - Type 2 diabetes mellitus with hyperglycemia insulin aspart U-100 (Novolog FlexPen U-100 Insulin aspart) Administer within 5 to 10 minutes before a meal. 15 units (0.15 mL) subcut TID 15 mL 3RF Discontinued dulaglutide (Trulicity) Discontinued Reason: Doctor's Order 3 mg (0.5 mL) subcut QWEEK 2 mL 2RF tirzepatide (Mounjaro) for 4 weeks Discontinued Reason: Doctor's Order 2.5 mg (0.5 mL) subcut QWEEK 2 mL 0RF Coding Level of Care Code Est Pt Level 4 (24023) Complex EM visit Add On G2211 Diagnoses Type 2 diabetes mellitus with both eyes affected by retinopathy without macular edema, with long-term current use of insulin, unspecified retinopathy severity E11.319; Z79.4 Diabetes mellitus complication detail: with diabetic retinopathy Diabetes mellitus complication status: with ophthalmic complications Diabetes mellitus macular edema: without macular edema Diabetes mellitus type: type 2 Diabetic retinopathy severity: with unspecified retinopathy severity Laterality: bilateral Primary hypertension I10 Hypertension type: primary hypertension Morbid obesity E66.01
[2024-09-06 11:13] VITALS: BP 122/80; PULSE 85; BMI 47.6
[2024-09-06 11:23] LABS: Glucose, Whole Blood 155 mg/dL (60-115)
== END 2024-09-06 11:43 | disposition home or self-care (01) ==
PROVIDERS: PCP Internal Medicine; Visit Provider Physician Assistant Medical
DX: E11.319 Type 2 diabetes mellitus with unspecified diabetic retinopathy without macular edema (principal); Z79.4 Long term (current) use of insulin; I10 Essential (primary) hypertension; E66.01 Morbid (severe) obesity due to excess calories

== ENCOUNTER → 2024-09-06 11:03 | Outpatient (BNVA) | payer MEDICARE, MEDICAID, SELFPAY | PROVIDERS: PCP Internal Medicine; Visit Provider Physician Assistant Medical | DX: E11.319 Type 2 diabetes mellitus with unspecified diabetic retinopathy without macular edema (principal); E11.65 Type 2 diabetes mellitus with hyperglycemia; E78.5 Hyperlipidemia, unspecified; E66.01 Morbid (severe) obesity due to excess calories; I10 Essential (primary) hypertension; Z79.4 Long term (current) use of insulin; Z68.42 Body mass index [BMI] 45.0-49.9, adult | CPT/HCPCS: 82947; 99212 ==

== ENCOUNTER 2024-11-22 10:09 | Outpatient (AMB) | payer MEDICARE, MEDICAID, SELFPAY ==
[2024-11-22 10:10] VITALS: BP 120/82; PULSE 89; O2SAT 97; BMI 47.3
--- NOTE | 2024-11-22 10:10 | A.OFFVIS_ITS ---
Vital Signs 11/22/24 10:10 Height 5 ft 7 in Weight 302 lb 0.533 oz BMI 47.3 BP 120/82 Blood Pressure Location Rt brachial Position Sitting Pulse 89 Pulse Source Pulse Oximeter Pulse Oximetry (%) 97 Oxygen Delivery Method Room Air Intake Visit Reasons: T2DM Intake Note: Patient presents today for a follow-up Type 2 Diabetes Mellitus: Last Diabetic eye exam was on: DUE Last Podiatry exam was on: Does not see a Retanned Leather Roller Most recent HbA1c: 7.9%, 11/22/2024 Random Glucose- 142 mg/dL, Today Used Car Renovator Required: Yes Used Car Renovator Language: Medical Claims Processor Services: Used Car Renovator Offered & Declined Accompanied by: Self / Same As Patient Allergies No Known Allergies Allergy (Verified 11/22/24 10:10) HPI Comments Details: This is a 38-year-old male with a past medical history of type 2 diabetes, hypertension, obesity, dyslipidemia, obstructive sleep apnea and depression with anxiety presenting for diabetic management. His glucometer summary shows his blood sugars are in range 64% of the time. His average glucose is 165 mg/dL. He is checking sugars an average of twice per day. Highest glucose 250 mg/dL and lowest is 87 mg/dL. Hemoglobin A1c 7.9% 11/22/2024. He is currently on Tresiba 64 units every morning. Patient taking 15 units of Fiasp with meals. Administers Mounjaro 5 mg weekly (switched from Trulicity). Taking Jardiance 25 mg. Denies side effects on his medications. Type 2 diabetes diagnosed in 2011. He had diarrhea with metformin. Complications: + retinopathy. Due for eye exam. Denies neuropathy symptoms. He restarted atorvastatin 2 months ago. Denies side effects. He did not receive the CGM from [facility]. I contacted them, and they did not receive the prescription. I confirmed I can send the prescriptions electronically, and they also need my office visit note from today forwarded. This will be done for the patient. The patient called his insurance, and they told him they cover NovoLog, but the pharmacy is not dispensing it on the basis that insurance does not cover it. He is using Fiasp, but he says it is not as effective as NovoLog. ROS: Constitutional: No unexplained weight loss, fever, chills, fatigue or night sweats. Eyes: No vision changes Respiratory: No shortness of breath Cardiovascular: No chest pain Gastrointestinal: No anorexia, nausea, vomiting or diarrhea. No abdominal pain Neurologic: No headache, dizziness, syncope Endocrine: No cold or heat intolerance. No polyuria or polydipsia. Physical exam: Constitutional: Alert, in no distress. Eyes: Pupils are equal, round and reactive to light. Extraocular muscles intact. Neck: Supple, Full range of motion. No lymphadenopathy. Respiratory: Clear to auscultation. Cardiovascular: S1 S2 regular. No murmurs. [facility] Medical History High cholesterol HTN (hypertension) Diabetes Candidal balanitis Anxiety Depression Sleep apnea Vitamin D deficiency Morbid obesity Dyslipidemia Hypertension Diabetes type 2, uncontrolled Surgical History No pertinent past surgical history Family History Father Hypertension Mother Type 2 diabetes mellitus Obesity Social History Housing: Apartment Alcohol intake: former Patient Tobacco Use Status: Current everyday Tobacco user Tobacco use type: Cigarette Cigarettes Per Day: 10 e-Cigarette/Vaping Use: Never Used Second Hand Smoke Exposure: No service: No Current occupational status: employed Current occupational exposures/hazards: No Cognitive needs: No Hearing needs: No Vision needs: Yes Physical Exam Vital Signs: Last Vital Signs Pulse 89 11/22/24 10:10 BP 120/82 11/22/24 10:10 Pulse Ox 97 11/22/24 10:10 Oxygen Delivery Method Room Air 11/22/24 10:10 BMI result Body Mass Index 47.3 Results AMB Hemoglobin A1c AMB Hemoglobin A1c 7.9 % Last Edit by MICHELE Avalos on 11/22/24 10:29 Results Reviewed Results Reviewed: Laboratory Last Values Glucose (Clinic) 142 mg/dL (60-115) H 11/22/24 10:18 Laboratory Tests 04/16/24 06/10/24 06/10/24 11:35 10:27 10:28 Creatinine 0.81 Estimated GFR > 60 Hgb A1c (Clinic) 8.0 H Cholesterol 183 LDL Cholesterol, Calc 116 H HDL Cholesterol 36 L Urine Creatinine 85.85 Urine Microalbumin < 5.0 Microalb/Creat Ratio TNP Assessment & Plan Assessment & Plan (1) Diabetes mellitus, with long-term current use of insulin: Code(s): E11.9 - Type 2 diabetes mellitus without complications; Z79.4 - senior living (current) use of insulin Category: Medical Qualifiers: Diabetes mellitus type: type 2 Diabetes mellitus complication status: with ophthalmic complications Diabetes mellitus complication detail: with diabetic retinopathy Diabetic retinopathy severity: with unspecified retinopathy severity Diabetes mellitus macular edema: without macular edema Laterality: bilateral Qualified Code(s): E11.319 - Type 2 diabetes mellitus wi th unspecified diabetic retinopathy without macular edema; Z79.4 - intermodal dispatcher (current) use of insulin (2) Morbid obesity: Code(s): E66.01 - Morbid (severe) obesity due to excess calories Category: Medical (3) Dyslipidemia: Code(s): E78.5 - Hyperlipidemia, unspecified Category: Medical Plan In summary this is a 38-year-old male with suboptimally controlled type 2 diabetes. Continue Tresiba 64 units every morning. Patient says NovoLog was more effective for him. He got a phone call that it was approved by insurance, but the pharmacy did not dispense it. We will need to reach out to his pharmacy and/or insurance to clarify. Continue Fiasp for now. Increase Mounjaro to 7.5 mg weekly. Continue Jardiance 25 mg. Patient should be able to get CGM now-see HPI. Reviewed proper treatment of hypoglycemia. If you experience low blood sugar, treat this by eating a chewable fruit candy like skittles or jelly beans (about 8 pieces), 4 ounces (1/2 cup) of fruit juice (not diet), 1 tablespoon of honey or 4 glucose tablets. If your blood sugar is under 50, take double the amount of one of the above. Recheck your blood sugar in 15 minutes. Follow up in 4 weeks for Type II diabetes. Orders: Orders AMB Hemoglobin A1c Today E11.319 - Type 2 diabetes mellitus with unspecified diabetic retinopathy without macular edema, Z79.4 - senior living (current) use of insulin Lipid Panel Today E11.319 - Type 2 diabetes mellitus with unspecified diabetic retinopathy without macular edema, E78.5 - Hyperlipidemia, unspecified, Z79.4 - intermodal dispatcher (current) use of insulin TSH reflex Free T4 Today E11.319 - Type 2 diabetes mellitus with unspecified diabetic retinopathy without macular edema, E78.5 - Hyperlipidemia, unspecified, Z79.4 - senior living (current) use of insulin Alanine Aminotransferase Today E11.319 - Type 2 diabetes mellitus with unspecified diabetic retinopathy without macular edema, E78.5 - Hyperlipidemia, unspecified, R79.89 - Other specified abnormal findings of blood chemistry, Z79.4 - senior living (current) use of insulin Aspartate Amino Transferase Today E11.319 - Type 2 diabetes mellitus with unspecified diabetic retinopathy without macular edema, E78.5 - Hyperlipidemia, unspecified, Z79.4 - intermodal dispatcher (current) use of insulin Creatinine Today E11.319 - Type 2 diabetes mellitus with unspecified diabetic retinopathy without macular edema, E78.5 - Hyperlipidemia, unspecified, Z79.4 - senior living (current) use of insulin B Type Natriuretic Peptide Today E11.319 - Type 2 diabetes mellitus with unspecified diabetic retinopathy without macular edema, E11.9 - Type 2 diabetes mellitus without complications, E78.5 - Hyperlipidemia, unspecified, Z79.4 - intermodal dispatcher (current) use of insulin Platelet Count Today E11.319 - Type 2 diabetes mellitus with unspecified diabetic retinopathy without macular edema, E78.5 - Hyperlipidemia, unspecified, Z79.4 - senior living (current) use of insulin Medications: New tirzepatide (Mounjaro) 7.5 mg (0.5 mL) subcut QWEEK 2 mL 0RF Refilled atorvastatin 40 mg PO BEDTIME 90 tabs 3RF blood-glucose sensor (FreeStyle Lorelei 3 Sensor device) apply new sensor every 14 days 2 ea 11RF E11.319 - Type 2 diabetes mellitus with unspecified diabetic retinopathy without macular edema, Z79.4 - intermodal dispatcher (current) use of insulin insulin degludec (Tresiba FlexTouch U-200 insulin) 64 units (0.32 mL) subcut BEDTIME 9 mL 3RF E11.65 - Type 2 diabetes mellitus with hyperglycemia blood-glucose meter,continuous (FreeStyle [place]lei 3 [place]) Use daily to monitor blood glucose levels continuously. 1 ea 0RF E11.319 - Type 2 diabetes mellitus with unspecified diabetic retinopathy without macular edema, Z79.4 - intermodal dispatcher (current) use of insulin Discontinued tirzepatide (Mounjuliaro) Discontinued Reason: Doctor's Order 5 mg (0.5 mL) subcut QWEEK 2 mL 0RF Coding Level of Care Code Est Pt Level 4 (26431) Complex EM visit Add On G2211 Diagnoses Type 2 diabetes mellitus with both eyes affected by retinopathy without macular edema, with long-term current use of insulin, unspecified retinopathy severity E11.319; Z79.4 Diabetes mellitus type: type 2 Diabetes mellitus complication status: with ophthalmic complications Diabetes mellitus complication detail: with diabetic retinopathy Diabetic retinopathy severity: with unspecified retinopathy severity Diabetes mellitus macular edema: without macular edema Laterality: bilateral Morbid obesity E66.01 Dyslipidemia E78.5
[2024-11-22 10:24] LABS: Glucose, Whole Blood 142 mg/dL (60-115)
== END 2024-11-22 10:56 | disposition home or self-care (01) ==
PROVIDERS: PCP Internal Medicine; Visit Provider Physician Assistant Medical
DX: E11.319 Type 2 diabetes mellitus with unspecified diabetic retinopathy without macular edema (principal); Z79.4 Long term (current) use of insulin; E66.01 Morbid (severe) obesity due to excess calories; E78.5 Hyperlipidemia, unspecified

== ENCOUNTER → 2024-11-22 10:09 | Outpatient (BNVA) | payer MEDICARE, MEDICAID, SELFPAY | PROVIDERS: PCP Internal Medicine; Visit Provider Physician Assistant Medical | DX: E11.319 Type 2 diabetes mellitus with unspecified diabetic retinopathy without macular edema (principal); E66.01 Morbid (severe) obesity due to excess calories; Z68.42 Body mass index [BMI] 45.0-49.9, adult; E78.5 Hyperlipidemia, unspecified; Z79.4 Long term (current) use of insulin; Z79.899 Other long term (current) drug therapy | CPT/HCPCS: 82947; 83036; 99212 ==

== ENCOUNTER 2025-01-03 10:22 | Outpatient (AMB) | payer MEDICARE, MEDICAID, SELFPAY ==
--- NOTE | 2025-01-03 10:24 | A.OFFVIS_ITS ---
Vital Signs 01/03/25 10:34 Height 5 ft 7 in Weight 312 lb 2.793 oz BMI 48.9 BP 124/70 Blood Pressure Location Rt brachial Position Sitting Pulse 99 Pulse Source Pulse Oximeter Pulse Oximetry (%) 98 Oxygen Delivery Method Room Air Intake Visit Reasons: T2DM Intake Note: Patient present today to follow up on Type 2 Diabetes Mellitus. 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 Random Glucose: 253 mg/dl HgA1C: 7.9% 11/22/24 Deburr Operator Required: Yes Deburr Operator Language: Tie Bucker Services: Deburr Operator Offered & Declined Accompanied by: Spouse Allergies No Known Allergies Allergy (Verified 01/03/25 10:36) Medication List - Last Reconciled 01/03/25 by VIKA Ravi atorvastatin 40 mg PO BEDTIME blood sugar diagnostic (FreeStyle Lite Strips) USE 1 STRIP DIRECTED 4 TIMES A DAY --INSURANCE PAYS FOR TESTING 3 TIMES DAILY blood-glucose meter (FreeStyle Lite Meter kit) checks 4 X/day blood-glucose sensor (FreeStyle Lorelei 3 Sensor device) apply new sensor every 14 days blood-glucose,house mover helper,cont (FreeStyle Lorelei 3 [place]) Use daily to monitor blood glucose levels continuously. empagliflozin (Jardiance) 25 mg PO DAILY FreeStyle Lancets (lancets) 3 times a day NS glucose (Dex4 Glucose Quick Dissolve) 16 grams (4 x 4 gram) PO Q15M PRN insulin aspart U-100 (Novolog FlexPen U-100 Insulin aspart) 15 units (0.15 mL) subcut TID insulin degludec (Tresiba FlexTouch U-200 insulin) 64 units (0.32 mL) subcut BEDTIME pen needle, diabetic 4 times a day tirzepatide (Mounjaro) 10 mg (0.5 mL) subcut QWEEK HPI Comments Details: This is a 39-year-old male with a past medical history of type 2 diabetes, hypertension, obesity, dyslipidemia, obstructive sleep apnea and depression with anxiety presenting for diabetic management. Reviewed glucometer download In range 31% Average glucose 200 mg/dL Three readings per day Highest 317 Lowest 119 Patient did not received CGM from [facility]. I called them after his appointment, and they delivered a 3 month supply a little less than a month ago so the package may have been lost. They are going to reach back out to the patient about this. Hemoglobin A1c 7.9% 11/22/2024. He is currently on Tresiba 64 units every morning. Patient taking 15 units of Fiasp with meals. Administers Mounjaro 7.5 mg weekly (switched from Trulicity and titrating dose). Taking Jardiance 25 mg. Denies side effects on his medications. Patient reports that he is using Fiasp due to his insurance, but he was previously on NovoLog, and Fiasp has not helped bring down postprandial blood sugars. He would like to switch back to it. Type 2 diabetes diagnosed in 2011. Past medication: He had diarrhea with metformin. Complications: + retinopathy. Denies neuropathy symptoms. He restarted atorvastatin 3 months ago. ROS: Constitutional: No unexplained weight loss, fever, chills, fatigue or night sweats. Eyes: No vision changes Respiratory: No shortness of breath Cardiovascular: No chest pain Gastrointestinal: No anorexia, nausea, vomiting or diarrhea. No abdominal pain Neurologic: No headache, dizziness, syncope Endocrine: No cold or heat intolerance. No polyuria or polydipsia. Physical exam: Constitutional: Alert, in no distress. Eyes: Pupils are equal, round and reactive to light. Extraocular muscles intact. Neck: Supple, Full range of motion. No lymphadenopathy. Respiratory: Clear to auscultation. Cardiovascular: S1 S2 regular. No murmurs. [facility] Medical History High cholesterol HTN (hypertension) Diabetes Candidal balanitis Anxiety Depression Sleep apnea Vitamin D deficiency Morbid obesity Dyslipidemia Hypertension Diabetes type 2, uncontrolled Surgical History No pertinent past surgical history Family History Father Hypertension Mother Type 2 diabetes mellitus Obesity Social History Housing: Apartment Alcohol intake: former Patient Tobacco Use Status: Current everyday Tobacco user Tobacco use type: Cigarette Cigarettes Per Day: 10 e-Cigarette/Vaping Use: Never Used Second Hand Smoke Exposure: No service: No Current occupational status: employed Current occupational exposures/hazards: No Cognitive needs: No Hearing needs: No Vision needs: Yes Physical Exam Vital Signs: Last Vital Signs Pulse 99 01/03/25 10:34 BP 124/70 01/03/25 10:34 Pulse Ox 98 01/03/25 10:34 Oxygen Delivery Method Room Air 01/03/25 10:34 BMI result Body Mass Index 48.9 Results Reviewed Results Reviewed: Laboratory Tests 04/16/24 06/10/24 06/10/24 11:35 10:27 10:28 Creatinine 0.81 Estimated GFR > 60 Hgb A1c (Clinic) 8.0 H Cholesterol 183 LDL Cholesterol, Calc 116 H HDL Cholesterol 36 L Urine Creatinine 85.85 Urine Microalbumin < 5.0 Microalb/Creat Ratio TNP Assessment & Plan Assessment & Plan (1) Diabetes mellitus, with long-term current use of insulin: Code(s): E11.9 - Type 2 diabetes mellitus without complications; Z79.4 - 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 (current) use of insulin Category: Medical Qualifiers: Diabetes mellitus type: type 2 Diabetes mellitus complication status: with ophthalmic complications Diabetes mellitus complication detail: with diabetic retinopathy Diabetic retinopathy severity: with unspecified retinopathy severity Diabetes mellitus macular edema: without macular edema Laterality: bilateral Qualified Code(s): E11.319 - Type 2 diabetes mellitus with unspecified diabetic retinopathy without macular edema; Z79.4 - [facility] (current) use of insulin (2) Morbid obesity: Code(s): E66.01 - Morbid (severe) obesity due to excess calories Category: Medical (3) Dyslipidemia: Code(s): E78.5 - Hyperlipidemia, unspecified Category: Medical Plan In summary this is a 39-year-old male with suboptimally controlled type 2 diabetes. Continue Tresiba 64 units every morning. I will see if we can do a prior authorization for NovoLog which is medically necessary since he tried Fiasp, and he continues to have postprandial hyperglycemia. Increase Mounjaro to 10 mg weekly. Continue Jardiance 25 mg. Reviewed proper treatment of hypoglycemia. If you experience low blood sugar, treat this by eating a chewable fruit candy like skittles or jelly beans (about 8 pieces), 4 ounces (1/2 cup) of fruit juice (not diet), 1 tablespoon of honey or 4 glucose tablets. If your blood sugar is under 50, take double the amount of one of the above. Recheck your blood sugar in 15 minutes. Patient will return for fasting labs. He was requesting a refill on vitamin-D, but he does not have a recent vitamin-D level. Order placed. Follow up in 6 weeks for type 2 diabetes. Orders: Orders Vitamin D 25-OH (D2 and D3) Today R79.89 - Other specified abnormal findings of blood chemistry Medications: New tirzepatide (Mounjaro) 10 mg (0.5 mL) subcut QWEEK 2 mL 2RF insulin aspart U-100 (Novolog FlexPen U-100 Insulin aspart) 15 units (0.15 mL) subcut TID 30 mL 4RF Discontinued cholecalciferol (vitamin D3) Discontinued Reason: Doctor's Order 50 mcg PO DAILY 90 days 90 caps 1RF E55.9 - Vitamin D deficiency, unspecified flash glucose scanning reader (FreeStyle Lorelei 2 [place]) Discontinued Reason: Doctor's Order As directed 1 ea 0RF tirzepatide (Mounjaro) Discontinued Reason: Doctor's Order 7.5 mg (0.5 mL) subcut QWEEK 2 mL 0RF flash glucose sensor (FreeStyle Lorelei 2 Sensor kit) Discontinued Reason: Doctor's Order As directed 2 ea 5RF insulin aspart (niacinamide) 100 unit/mL (3 mL) (Fiasp FlexTouch U-100 Insulin) 15 units subcutaneously 3 times a day; Inject at the beginning of or within 20 minutes after starting a meal Discontinued Reason: Doctor's Order 15 units subcut TID 15 mL 5RF Patient Instructions: Continue Tresiba 64 units every morning. Increase Mounjaro to 10 mg weekly. Continue Jardiance 25 mg. If you experience low blood sugar, treat this by eating a chewable fruit candy like skittles or jelly beans (about 8 pieces), 4 ounces (1/2 cup) of fruit juice (not diet), 1 tablespoon of honey or 4 glucose tablets. If your blood sugar is under 50, take double the amount of one of the above. Recheck your blood sugar in 15 minutes. Coding Level of Care Code Est Pt Level 4 (90624) Complex EM visit Add On G2211 Diagnoses Type 2 diabetes mellitus with both eyes affected by retinopathy without macular edema, with long-term current use of insulin, unspecified retinopathy severity E11.319; Z79.4 Diabetes mellitus type: type 2 Diabetes mellitus complication status: with ophthalmic complications Diabetes mellitus complication detail: with diabetic retinopathy Diabetic retinopathy severity: with unspecified retinopathy severity Diabetes mellitus macular edema: without macular edema Laterality: bilateral Morbid obesity E66.01 Dyslipidemia E78.5
[2025-01-03 10:34] VITALS: BP 124/70; PULSE 99; O2SAT 98; BMI 48.9
[2025-01-03 10:47] LABS: Glucose, Whole Blood 253 mg/dL (60-115)
== END 2025-01-03 11:08 | disposition home or self-care (01) ==
LOC: HO.ENCR 10:23
PROVIDERS: PCP Internal Medicine; Visit Provider Physician Assistant Medical
DX: E11.319 Type 2 diabetes mellitus with unspecified diabetic retinopathy without macular edema (principal); Z79.4 Long term (current) use of insulin; E66.01 Morbid (severe) obesity due to excess calories; E78.5 Hyperlipidemia, unspecified

== ENCOUNTER → 2025-01-03 10:22 | Outpatient (BNVA) | payer MEDICARE, MEDICAID, SELFPAY | PROVIDERS: PCP Internal Medicine; Visit Provider Physician Assistant Medical | DX: E11.319 Type 2 diabetes mellitus with unspecified diabetic retinopathy without macular edema (principal); E66.01 Morbid (severe) obesity due to excess calories; E78.5 Hyperlipidemia, unspecified; Z79.4 Long term (current) use of insulin; Z79.84 Long term (current) use of oral hypoglycemic drugs; Z68.42 Body mass index [BMI] 45.0-49.9, adult | CPT/HCPCS: 82947; 99212 ==

== ENCOUNTER 2025-02-24 08:08 | Outpatient (REF) | payer MEDICARE, MEDICAID, SELFPAY ==
[2025-02-24 08:45] LABS: Platelet Count 251 X10*3/uL (160-400)
[2025-02-24 09:20] LABS: B Type Natriuretic Peptide 11 pg/mL (<100)
[2025-02-24 09:24] LABS: Alanine Aminotransferase 76 U/L (0-40); Aspartate Amino Transferase 41 U/L (5-37); Cholesterol 159 mg/dL (<200); Estimated Glomerular Filt Rate > 60; HDL Cholesterol 42 mg/dL (>40); LDL Cholesterol Calculated 94 mg/dL (<100); Triglycerides 116 mg/dL (<150)
[2025-02-24 09:39] LABS: TSH reflex Free T4 0.56 uIU/mL (0.32-4.0)
[2025-02-27 18:53] LABS: Vitamin D 25-OH, D2 <4 ng/mL; Vitamin D 25-OH, D3 22 ng/mL; Vitamin D 25-OH, Total 22 ng/mL (30-100)
== END 2025-02-24 08:09 | disposition home or self-care (01) ==
LOC: HO.LAB 08:08
PROVIDERS: PCP Physician Assistant Medical; Visit Provider Physician Assistant Medical
DX: E11.319 Type 2 diabetes mellitus with unspecified diabetic retinopathy without macular edema (principal); E78.5 Hyperlipidemia, unspecified; Z79.4 Long term (current) use of insulin; E11.9 Type 2 diabetes mellitus without complications; R79.89 Other specified abnormal findings of blood chemistry
CPT/HCPCS: 36415; 80061; 82306; 82565; 83880; 84443; 84450; 84460; 85049

== ENCOUNTER 2025-02-25 10:39 | Outpatient (AMB) | payer MEDICARE, MEDICAID, SELFPAY ==
--- NOTE | 2025-02-25 10:48 | A.OFFVIS_ITS ---
Vital Signs 02/25/25 10:53 Height 5 ft 7 in Weight 307 lb 12.245 oz BMI 48.2 BP 96/72 Blood Pressure Location Rt brachial Position Sitting Pulse 86 Pulse Source Pulse Oximeter Pulse Oximetry (%) 96 Oxygen Delivery Method Room Air Intake Visit Reasons: type II diabetes Intake Note: Patient present today to follow up on Type 2 Diabetes Mellitus. Patient receives Dexcom G7 supplies through: [facility] Last Diabetic Eye exam: approx 2 months ago Last Podiatry Visit: Does not see a [employer] Services Program Associate Random Glucose: 172 mg/dl HgA1C: 8.5% 02/25/2025 It Consultant Required: Yes It Consultant Language: Car Inspection And Repair Manager Services: It Consultant Offered & Declined Accompanied by: Self / Same As Patient Allergies No Known Allergies Allergy (Verified 02/25/25 10:53) HPI Comments Details: This is a 39-year-old male with a past medical history of type 2 diabetes, hypertension, obesity, dyslipidemia, obstructive sleep apnea and depression with anxiety presenting for diabetic management. Type 2 diabetes diagnosed in 2011. He brought his glucometer: 14 day average 208 AM readings: 122, 135, 170, 172 PM/evenin, 161, 190, 225, 246, 307 Patient did not received CGM from [facility]. I called them after his last appointment, and they delivered a 3 month supply a little less than a month ago so the package may have been lost. They said they would reach out to the patient, but he did not hear from them. I provided him with the contact number for [facility], and he will call. Hemoglobin A1c 8.5% today. He is currently on Tresiba 64 units every morning, Mounjaro 10 mg weekly, Jardiance 25 mg daily. Patient prescribed 15 units (only taking 12-14) of insulin aspart with meals. Past medication: He had diarrhea with metformin. Trulicity discontinued. Complications: + retinopathy. Denies neuropathy symptoms. Hyperlipidemia is treated with atorvastatin. LDL is above goal of less than 100. His liver enzymes are mildly elevated. Denies symptoms. Drinks alcohol socially a few times per month. ROS: Constitutional: No unexplained weight loss, fever, chills, fatigue or night sweats. Eyes: No vision changes Respiratory: No shortness of breath Cardiovascular: No chest pain Gastrointestinal: No anorexia, nausea, vomiting or diarrhea. No abdominal pain Neurologic: No headache, dizziness, syncope Endocrine: No cold or heat intolerance. No polyuria or polydipsia. Physical exam: Constitutional: Alert, in no distress. Eyes: Pupils are equal, round and reactive to light. Extraocular muscles intact. Neck: Supple, Full range of motion. No lymphadenopathy. Respiratory: Clear to auscultation. Cardiovascular: S1 S2 regular. No murmurs. Abdomen: Soft, nontender, no organomegaly or palpable masses. [facility] Medical History (Updated 02/25/25 @ 11:23 by VIKA Ravi) Elevated liver function tests Low vitamin D level High cholesterol HTN (hypertension) Diabetes Candidal balanitis Anxiety Depression Sleep apnea Vitamin D deficiency Morbid obesity Dyslipidemia Hypertension Diabetes type 2, uncontrolled Surgical History No pertinent past surgical history Family History Father Hypertension Mother Type 2 diabetes mellitus Obesity Social History Housing: Apartment Alcohol intake: former Patient Tobacco Use Status: Current everyday Tobacco user Tobacco use type: Cigarette Cigarettes Per Day: 10 e-Cigarette/Vaping Use: Never Used Second Hand Smoke Exposure: No service: No Current occupational status: employed Current occupational exposures/hazards: No Cognitive needs: No Hearing needs: No Vision needs: Yes Physical Exam Vital Signs: Last Vital Signs Pulse 86 02/25/25 10:53 BP 96/72 02/25/25 10:53 Pulse Ox 96 02/25/25 10:53 Oxygen Delivery Method Room Air 02/25/25 10:53 BMI result Body Mass Index 48.2 Results AMB Hemoglobin A1c AMB Hemoglobin A1c 8.5 % Last Edit by MICHELE Jones on 02/25/25 11:13 Results Reviewed Results Reviewed: Laboratory Last Values Glucose (Clinic) 172 mg/dL (60-115) H 02/25/25 10:59 Hgb A1c (Clinic) 8.5 % (4.0-6.0) H 02/25/25 11:12 Laboratory Tests 02/24/25 02/25/25 08:26 11:12 Plt Count 251 Creatinine 0.76 Estimated GFR > 60 Hgb A1c (Clinic) 8.5 H AST 41 H ALT 76 H Triglycerides 116 Cholesterol 159 LDL Cholesterol, Calc 94 HDL Cholesterol 42 TSH 0.56 Assessment & Plan Assessment & Plan (1) Diabetes mellitus, with long-term current use of insulin: Code(s): E11.9 - Type 2 diabetes mellitus without complications; Z79.4 - residential (current) use of insulin Category: Medical Qualifiers: Diabetes mellitus type: type 2 Diabetes mellitus complication status: with ophthalmic complications Diabetes mellitus complication detail: with diabetic retinopathy Diabetic retinopathy severity: with unspecified retinopathy severity Diabetes mellitus macular edema: without macular edema Laterality: bilateral Qualified Code(s): E11.319 - Type 2 diabetes mellitus with unspecified diabetic retinopathy without macular edema; Z79.4 - technician terminal and repeater (current) use of insulin (2) Morbid obesity: Code(s): E66.01 - Morbid (severe) obesity due to excess calories Category: Medical (3) Dyslipidemia: Code(s): E78.5 - Hyperlipidemia, unspecified Category: Medical (4) Elevated liver function tests: Code(s): R79.89 - Other specified abnormal findings of blood chemistry Category: Medical Plan In summary this is a 39-year-old male with uncontrolled type 2 diabetes. Continue Tresiba 64 units every morning. Increase insulin aspart to 14-16 units before meals. Increase Mounjaro to 12.5 mg weekly. Continue Jardiance 25 mg. Patient given contact number for [facility]. He needs to call them regarding his next CGM delivery. Reviewed proper treatment of hypoglycemia. If you experience low blood sugar, treat this by eating a chewable fruit candy like skittles or jelly beans (about 8 pieces), 4 ounces (1/2 cup) of fruit juice (not diet), 1 tablespoon of honey or 4 glucose tablets. If your blood sugar is under 55, take double the amount of one of the above. Recheck your blood sugar in 15 minutes. Return for additional labs in 6 weeks. Check liver ultrasound with elastography. Continue atorvastatin. LDL at goal. Follow up in 7-8 weeks for type 2 diabetes. Orders: Orders AMB Hemoglobin A1c Today E11.319 - Type 2 diabetes mellitus with unspecified diabetic retinopathy without macular edema, Z79.4 - technician terminal and repeater (current) use of insulin Alanine Aminotransferase Today R79.89 - Other specified abnormal findings of blood chemistry Aspartate Amino Transferase Today R79.89 - Other specified abnormal findings of blood chemistry Hepatitis A IgM Today R79.89 - Other specified abnormal findings of blood chemistry Hepatitis A,B,C Profile Today R79. - Other specified abnormal findings of bl ood chemistry US abdomen knox w elastography Today R7. - Other specified abnormal findings of blood chemistry Medications: New tirzepatide (Mounjaro) 12.5 mg (0.5 mL) subcut QWEEK 2 mL 1RF Discontinued tirzepatide (Mounjaro) Discontinued Reason: Doctor's Order 10 mg (0.5 mL) subcut QWEEK 2 mL 2RF Patient Instructions: Call [facility] about the continuous glucose meter. ? ?? Continue Tresiba 64 units every morning Increase insulin aspart to 14-16 units before meals. Increase Mounjaro to 12.5 mg weekly. Continue Jardiance 25 mg daily. Llame a [facility] para consultar sobre el medidor continuo de glucosa. ? ?? Contin?e con Tresiba 64 unidades cada ma?caleb. Aumente la insulina aspart a 14-16 unidades antes de las comidas. Aumente la dosis de Mounjaro a 12.5 mg semanales. Contin?e con Jardiance 25 mg al d?a. Coding Level of Care Code Est Pt Level 4 (07819) Complex EM visit Add On G2211 Diagnoses Type 2 diabetes mellitus with both eyes affected by retinopathy without macular edema, with long-term current use of insulin, unspecified retinopathy severity E11.319; Z79.4 Diabetes mellitus type: type 2 Diabetes mellitus complication status: with ophthalmic complications Diabetes mellitus complication detail: with diabetic retinopathy Diabetic retinopathy severity: with unspecified retinopathy severity Diabetes mellitus macular edema: without macular edema Laterality: bilateral Morbid obesity E66.01 Dyslipidemia E78.5 Elevated liver function tests R79.89
[2025-02-25 10:53] VITALS: BP 96/72; PULSE 86; O2SAT 96; BMI 48.2
[2025-02-25 11:03] LABS: Glucose, Whole Blood 172 mg/dL (60-115)
== END 2025-02-25 11:37 | disposition home or self-care (01) ==
LOC: HO.ENCR 10:40
PROVIDERS: PCP Internal Medicine; Visit Provider Physician Assistant Medical
DX: E11.319 Type 2 diabetes mellitus with unspecified diabetic retinopathy without macular edema (principal); Z79.4 Long term (current) use of insulin; E66.01 Morbid (severe) obesity due to excess calories; E78.5 Hyperlipidemia, unspecified; R79.89 Other specified abnormal findings of blood chemistry

== ENCOUNTER → 2025-02-25 10:39 | Outpatient (BNVA) | payer MEDICARE, MEDICAID, SELFPAY | PROVIDERS: PCP Internal Medicine; Visit Provider Physician Assistant Medical | DX: E11.319 Type 2 diabetes mellitus with unspecified diabetic retinopathy without macular edema (principal); E78.5 Hyperlipidemia, unspecified; E66.01 Morbid (severe) obesity due to excess calories; R79.89 Other specified abnormal findings of blood chemistry; Z79.4 Long term (current) use of insulin; Z79.84 Long term (current) use of oral hypoglycemic drugs; Z68.42 Body mass index [BMI] 45.0-49.9, adult | CPT/HCPCS: 82947; 83036; 99212 ==

== ENCOUNTER 2025-04-09 10:51 | Outpatient (REF) | payer MEDICARE, MEDICAID, SELFPAY ==
--- NOTE | ~2025-04-09 | US_ITS ---
EXAMINATION: US ABDOMEN LIMITED WITH LIVER ELASTOGRAPHY HISTORY: R79.89 - Other specified abnormal findings of blood chemistry TECHNIQUE: Real-time grayscale ultrasound imaging of the right upper quadrant was performed and images were reviewed. COMPARISON: There are no prior studies available for comparison. FINDINGS: Liver: The right lobe of the liver measures 15.9 cm in size. The left lobe of the liver measures 10.8 cm in size. The liver demonstrates increased echotexture, consistent with steatosis. No focal mass or intrahepatic biliary ductal dilatation is identified. There is normal hepatopedal flow in the portal vein. Ultrasound elastography of the liver was performed with 10 separate measurements of the liver parenchyma with the patient in the supine position. Measurements were obtained approximately 2 cm below Byron's capsule and perpendicular to the capsule. The median shear wave velocity is 1.69 m/s. The interquartile range/median (IQR/median) is 0.07. Gallbladder and biliary tree: The gallbladder is unremarkable, without evidence of calculi, wall thickening, or pericholecystic fluid. There is no sonographic Guiterrez sign. The common bile duct is normal in caliber measuring 5 mm. Right Kidney: The right kidney measures 14.0 cm in length. The right kidney is unremarkable, without evidence of masses, hydronephrosis, or calculi. Pancreas: Pancreas is obscured by bowel gas. Abdominal aorta and inferior vena cava: The visualized portions of the abdominal aorta and inferior vena cava are normal in caliber. There is no free fluid in the right upper quadrant. US/US abdomen knox w elastography IMPRESSION: Hepatomegaly and hepatic steatosis The median shear wave velocity in the liver is 1.69 m/s, corresponding to a median liver stiffness of 8.72 kPa. The IQR/median value is 0.07. This is indicative of a quality data set. Findings are indicative of a low elastography value which rules out advanced chronic liver disease in asymptomatic patients. REFERENCE: Society of Radiologists in Ultrasound Liver Stiffness Thresholds (2020): LIVER STIFFNESS THRESHOLDS: *Shear wave velocity less than 1.3 m/s (Liver Stiffness equal or less than 5 kPa): High probability of being normal. *Shear wave velocity less than 1.7 m/s (Liver Stiffness less than 9 kPa): In the absence of other known clinical signs, rules out compensated advanced chronic liver disease. *Shear wave velocity between 1.7-2.1 m/s (Liver Stiffness 9-13 kPa): Suggestive of compensated advanced chronic liver disease but need further test for confirmation. *Shear wave velocity between 2.1-2.4 m/s (Liver Stiffness 13-17 kPa): Rules in compensated advanced chronic liver disease. *Shear wave velocity greater than 2.4 m/s (Liver Stiffness over 17 kPa): Suggestive of clinically significant portal hypertension. QUALITY OF DATA SET: *IQR/Median value equal or less than 0.15 implies a quality data set. *IQR/Median value over 0.15 implies a poor quality data set. SIGNIFICANT CHANGE FROM PRIOR EXAM: Significant change if liver stiffness measurement is 10% or greater from prior exam. OTHER CONSIDERATIONS: The stage of liver fibrosis may be overestimated in the setting of acute hepatitis, liver inflammation, elevated liver function tests, hepatic vascular congestion, obstructive cholestasis, non-fasting state, and infiltrative diseases such as amyloidosis and lymphoma. In some patients with NAFLD, the liver stiffness thresholds for compensated advanced chronic liver disease may be lower. In causes other than viral hepatitis and NAFLD, liver stiffness thresholds are not well established. Electronically signed by: Eloy Cain MD 04/09/2025 11:56 AM EDT
== END 2025-04-09 10:52 | disposition home or self-care (01) ==
LOC: HO.US 10:51
PROVIDERS: PCP Internal Medicine; Visit Provider Physician Assistant Medical
DX: R79.89 Other specified abnormal findings of blood chemistry (principal)
CPT/HCPCS: 76705; 76981

== ENCOUNTER → 2025-04-09 10:53 | Outpatient (BNV) | payer MEDICARE, MEDICAID, SELFPAY | PROVIDERS: PCP Internal Medicine; Visit Provider Radiology Diagnostic Radiology | DX: K76.0 Fatty (change of) liver, not elsewhere classified (principal); R16.0 Hepatomegaly, not elsewhere classified | CPT/HCPCS: 76705 ==

== ENCOUNTER 2025-04-22 10:27 | Outpatient (AMB) | payer MEDICARE, MEDICAID, SELFPAY ==
[2025-04-22 11:05] VITALS: BP 118/78; PULSE 87; O2SAT 98; BMI 46.8
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
[2025-04-22 11:14] LABS: Glucose, Whole Blood 139 mg/dL (60-115)
== END 2025-04-22 11:30 | disposition home or self-care (01) ==
LOC: HO.ENCR 10:28
PROVIDERS: PCP Internal Medicine; Visit Provider Physician Assistant Medical
DX: E11.319 Type 2 diabetes mellitus with unspecified diabetic retinopathy without macular edema (principal); Z79.4 Long term (current) use of insulin; E66.01 Morbid (severe) obesity due to excess calories; E78.5 Hyperlipidemia, unspecified

== ENCOUNTER 2025-04-22 10:27 | Outpatient (REF) | payer MEDICARE, MEDICAID, SELFPAY ==
[2025-04-22 12:28] LABS: Alanine Aminotransferase 51 U/L (0-40); Aspartate Amino Transferase 31 U/L (5-37)
[2025-04-22 12:50] LABS: Hepatitis A Antibody IgM 0.16 Index (0-0.79); ~Hepatitis A Antibody IgM Nonreactive (Nonreactive)
[2025-04-22 12:52] LABS: HBS Num1 106.94 mIU/mL (0-7.99); HBc Num1 0.06 S/CO (0.00-0.79); HBsAGNum1 0.31 S/CO (0.00-0.99); Hepatitis A Antibody IgM 0.15 Index (0-0.79); Hepatitis B Surface Antigen Negative (Negative); ~HepC Num1 0.09 S/CO (0.00-0.79); ~Hepatitis A Antibody IgM Nonreactive (Nonreactive); ~Hepatitis B Surface Antibody REACTIVE (Nonreactive); ~Hepatitis C Antibody Nonreactive (Nonreactive)
== END 2025-04-22 10:28 | disposition home or self-care (01) ==
LOC: HO.LAB 10:27
PROVIDERS: PCP Internal Medicine; Visit Provider Physician Assistant Medical
DX: E11.319 Type 2 diabetes mellitus with unspecified diabetic retinopathy without macular edema (principal); E11.65 Type 2 diabetes mellitus with hyperglycemia; E78.5 Hyperlipidemia, unspecified; E66.01 Morbid (severe) obesity due to excess calories; Z68.42 Body mass index [BMI] 45.0-49.9, adult; Z79.4 Long term (current) use of insulin; Z79.85 Long-term (current) use of injectable non-insulin antidiabetic drugs; Z79.899 Other long term (current) drug therapy
CPT/HCPCS: 36415; 82947; 84450; 84460; 86704; 86706; 86709; 86803; 87340; 99212

== ENCOUNTER 2025-05-27 11:16 | Outpatient (AMB) | payer MEDICARE, MEDICAID, SELFPAY ==
[2025-05-27 11:20] VITALS: BP 102/68; PULSE 74; O2SAT 96; BMI 47.0
--- NOTE | 2025-05-27 11:20 | A.OFFVIS_ITS ---
Vital Signs 05/27/25 11:20 Height 5 ft 7 in Weight 299 lb 13.259 oz BMI 47.0 BP 102/68 Blood Pressure Location Rt brachial Position Sitting Pulse 74 Pulse Source Pulse Oximeter Pulse Oximetry (%) 96 Oxygen Delivery Method Room Air Intake Visit Reasons: Type II diabetes Intake Note: Patient present today to follow up on Type 2 Diabetes Mellitus. Patient receives Dexcom G7 supplies through: [facility] Last Diabetic Eye exam: 12/2023, [facility], [place]. 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 Type 2 diabetes diagnosed in 2011. Hemoglobin A1c is 7.6% down from 8.5%. 14 day average 154. He has some highs after lunch but not all the time. This is typically his largest meal of the day. Medication regimen: Tresiba 64 units every morning. insulin aspart 16 units before meals. Mounjaro to 15 mg weekly. Jardiance 25 mg. Recent ultrasound demonstrated hepatic steatosis. Repeat labs show negative testing for hepatitis a, B and C infection and improvement in liver enzymes. Past medication: He had diarrhea with metformin. Trulicity discontinued. Complications: + retinopathy. Denies neuropathy symptoms. Hyperlipidemia is treated with atorvastatin. ROS: Constitutional: No unexplained weight loss, fever, chills, fatigue or night sweats. Eyes: No vision changes Respiratory: No shortness of breath Cardiovascular: No chest pain Gastrointestinal: No anorexia, nausea, vomiting or diarrhea. No abdominal pain Neurologic: No headache, dizziness, syncope Endocrine: No cold or heat intolerance. No polyuria or polydipsia. Physical exam: Constitutional: Alert, in no distress. Eyes: Pupils are equal, round and reactive to light. Extraocular muscles intact. Neck: Supple, Full range of motion. No lymphadenopathy. Respiratory: Clear to auscultation. Cardiovascular: S1 S2 regular. No murmurs. [facility] Medical History (Updated 04/11/25 @ 17:13 by VIKA Ravi) Hepatic steatosis Elevated liver function tests Low vitamin D level High cholesterol HTN (hypertension) Diabetes Candidal balanitis Anxiety Depression Sleep apnea Vitamin D deficiency Morbid obesity Dyslipidemia Hypertension Diabetes type 2, uncontrolled Surgical History No pertinent past surgical history Family History Father Hypertension Mother Type 2 diabetes mellitus Obesity Social History Housing: Apartment Alcohol intake: former Patient Tobacco Use Status: Current everyday Tobacco user Tobacco use type: Cigarette Cigarettes Per Day: 10 e-Cigarette/Vaping Use: Never Used Second Hand Smoke Exposure: No service: No Current occupational status: employed Current occupational exposures/hazards: No Cognitive needs: No Hearing needs: No Vision needs: Yes Physical Exam Vital Signs: Last Vital Signs Pulse 74 05/27/25 11:20 BP 102/68 05/27/25 11:20 Pulse Ox 96 05/27/25 11:20 Oxygen Delivery Method Room Air 05/27/25 11:20 BMI result Body Mass Index 47.0 Results AMB Hemoglobin A1c AMB Hemoglobin A1c 7.6 % Last Edit by MICHELE Avalos on 05/27/25 11:34 Results Reviewed Results Reviewed: Laboratory Last Values Glucose (Clinic) 186 mg/dL (60-115) H 05/27/25 11:25 Hgb A1c (Clinic) 7.6 % (4.0-6.0) H 05/27/25 11:33 Laboratory Tests 02/24/25 02/25/25 08:26 11:12 Plt Count 251 Creatinine 0.76 Estimated GFR > 60 Hgb A1c (Clinic) 8.5 H AST 41 H ALT 76 H Triglycerides 116 Cholesterol 159 LDL Cholesterol, Calc 94 HDL Cholesterol 42 TSH 0.56 Laboratory Tests 04/22/25 11:46 AST 31 ALT 51 H Assessment & Plan Assessment & Plan (1) Diabetes mellitus, with long-term current use of insulin: Code(s): E11.9 - Type 2 diabetes mellitus without complications; Z79.4 - devulcanizer tender (current) use of insulin Category: Medical Qualifiers: Diabetes mellitus complication detail: with diabetic retinopathy Diabetes mellitus complication status: with ophthalmic complications Diabetes mellitus macular edema: without macular edema Diabetes mellitus type: type 2 Diabetic retinopathy severity: with unspecified retinopathy severity Laterality: bilateral Qualified Code(s): E11.319 - Type 2 diabetes mellitus with unspecified diabetic retinopathy without macular edema; Z79.4 - devulcanizer tender (current) use of insulin (2) Morbid obesity: Code(s): E66.01 - Morbid (severe) obesity due to excess calories Category: Medical (3) Dyslipidemia: Code(s): E78.5 - Hyperlipidemia, unspecified Category: Medical Plan In summary this is a 39-year-old male with suboptimally controlled albeit improving type 2 diabetes. Continue Tresiba 64 units every morning. Take insulin aspart 16 units before meals. If he is having a larger meal with carbohydrates he will take 18 units before lunch. Continue Mounjaro to 15 mg weekly. Continue Jardiance 25 mg. CGM information was sent to [facility]. Given patient the contact number to call them to schedule delivery for sensors. I called the pharmacy and confirmed once he reaches out to them the sensors will be delivered. Reviewed proper treatment of hypoglycemia. If you experience low blood sugar, treat this by eating a chewable fruit candy like skittles or jelly beans (about 8 pieces), 4 ounces (1/2 cup) of fruit juice (not diet), 1 tablespoon of honey or 4 glucose tablets. If your blood sugar is under 59, take double the amount of one of the above. Recheck your blood sugar in 15 minutes. Continue atorvastatin. Follow up in 3 months for type 2 diabetes. Orders: Orders AMB Hemoglobin A1c Today E11.65 - Type 2 diabetes mellitus with hyperglycemia Patient Instructions: Medication regimen: Tresiba 64 units every morning. insulin aspart 16 units before meals. if lunch is a larger meal with more carbohydrate like bread, pasta or rice, take 18 units before lunch. Mounjaro 15 mg weekly. Jardiance 25 mg. If you experience low blood sugar, treat this by eating a chewable fruit candy like skittles or jelly beans (about 8 pieces), 4 ounces (1/2 cup) of fruit juice (not diet), 1 tablespoon of honey or 4 glucose tablets. If your blood sugar is under 50, take double the amount of one of the above. Recheck your blood sugar in 15 minutes. Coding Level of Care Code Est Pt Level 4 (23582) Complex EM visit Add On G2211 Diagnoses Type 2 diabetes mellitus with both eyes affected by retinopathy without macular edema, with long-term current use of insulin, unspecified retinopathy severity E11.319; Z79.4 Diabetes mellitus complication detail: with diabetic retinopathy Diabetes mellitus complication status: with ophthalmic complications Diabetes mellitus macular edema: without macular edema Diabetes mellitus type: type 2 Diabetic retinopathy severity: with unspecified retinopathy severity Laterality: bilateral Morbid obesity E66.01 Dyslipidemia E78.5
[2025-05-27 11:29] LABS: Glucose, Whole Blood 186 mg/dL (60-115)
== END 2025-05-27 12:00 | disposition home or self-care (01) ==
LOC: HO.ENCR 11:17
PROVIDERS: PCP Internal Medicine; Visit Provider Physician Assistant Medical
DX: E11.319 Type 2 diabetes mellitus with unspecified diabetic retinopathy without macular edema (principal); Z79.4 Long term (current) use of insulin; E66.01 Morbid (severe) obesity due to excess calories; E78.5 Hyperlipidemia, unspecified; E11.65 Type 2 diabetes mellitus with hyperglycemia

== ENCOUNTER → 2025-05-27 11:16 | Outpatient (BNVA) | payer MEDICARE, MEDICAID, SELFPAY | PROVIDERS: PCP Internal Medicine; Visit Provider Physician Assistant Medical | DX: E11.319 Type 2 diabetes mellitus with unspecified diabetic retinopathy without macular edema (principal); Z79.4 Long term (current) use of insulin; E66.01 Morbid (severe) obesity due to excess calories; Z68.42 Body mass index [BMI] 45.0-49.9, adult; E78.5 Hyperlipidemia, unspecified | CPT/HCPCS: 82947; 83036; 99212 ==